=== PATIENT | male | born 1945 | race Caucasian/White ===

== ENCOUNTER 2018-04-29 11:08 | Emergency (ER) | payer BC, OTHER ==
[2018-04-29] MEDS: PERCOCET 5MG/325MG TAB PO (12:34)
[2018-04-29] MEDS: METHOCARBAMOL 500 MG TAB PO (12:34)
[2018-04-29] MEDS: predniSONE 20 MG TAB PO (13:30)
== END 2018-04-29 13:33 | disposition home or self-care (01) ==
LOC: M ED 11:08
DX: M54.17 Radiculopathy, lumbosacral region (principal); M54.42 Lumbago with sciatica, left side; I10 Essential (primary) hypertension; M10.9 Gout, unspecified; Z87.891 Personal history of nicotine dependence; M43.06 Spondylolysis, lumbar region; M43.16 Spondylolisthesis, lumbar region; M48.061 Spinal stenosis, lumbar region without neurogenic claudication; M25.78 Osteophyte, vertebrae; Z79.82 Long term (current) use of aspirin; Z79.899 Other long term (current) drug therapy; Z88.0 Allergy status to penicillin
CPT/HCPCS: 72131

== ENCOUNTER → 2018-09-29 | Outpatient (REF) | payer MEDICARE, OTHER ==
[~2018-09-29] MED LIST: ASPI81TA85 PO; LOSA50TA88; NORCOTAB PO; OMEP40CA2; PRED10TA2 PO; PRED20TA PO; ROBA500T PO; SIMV10TA2 PO; TYLE500T78 PO; ULTR50TA8 PO; ZYLO300T6
== END ==
LOC: M SFHCPLAZ 16:57
PROVIDERS: ATTEND Dermatology
DX: L81.4 Other melanin hyperpigmentation (principal); L82.1 Other seborrheic keratosis
CPT/HCPCS: 11100; 11101; 17000; 17003; 88305; G0463

== ENCOUNTER 2018-10-13 13:38 | Emergency (ER) | payer BC, MEDICARE ==
[~2018-10-13] VITALS: Ht 180.3 cm; Wt 119.5 kg
[~2018-10-13 13:38] MED LIST changes: +LOSA50TA73; -LOSA50TA88; -PRED20TA PO; -SIMV10TA2 PO; -ULTR50TA8 PO
[2018-10-13] MEDS ORDERED: SIMV10TA2 PO (13:48)
[2018-10-13] MEDS ORDERED: ROBA500T PO (15:20)
[2018-10-13] MEDS ORDERED: ULTR50TA8 PO (15:20)
[2018-10-13] MEDS ORDERED: PRED20TA PO (15:20)
[2018-10-13] MEDS: predniSONE 20 MG TAB PO ONE (15:22)
[2018-10-13] MEDS: ACETAMINOPHEN 325 MG TAB PO ONE (15:23)
[2018-10-13] MEDS: traMADol 50 MG TAB PO ONE (15:23)
[2018-10-13 15:33] VITALS: BP 139/95
== END 2018-10-13 15:36 | disposition home or self-care (01) ==
LOC: M ED 13:38
DX: M51.37 Other intervertebral disc degeneration, lumbosacral region (principal); M54.16 Radiculopathy, lumbar region; M54.32 Sciatica, left side; Z79.899 Other long term (current) drug therapy; Z79.82 Long term (current) use of aspirin; Z88.0 Allergy status to penicillin

== ENCOUNTER → 2018-12-12 | Outpatient (REF) | payer MEDICARE, OTHER ==
[~2018-12-12] MED LIST changes: -LOSA50TA73; +LOSA50TA88; +PRED20TA PO; +SIMV10TA2 PO; +ULTR50TA8 PO
== END ==
LOC: M SFHCCLAY 16:23
PROVIDERS: ATTEND Family Medicine
DX: R19.7 Diarrhea, unspecified (principal)

== ENCOUNTER → 2019-02-24 | Outpatient (REF) | payer MEDICARE, OTHER ==
[~2019-02-24] MED LIST changes: +HYDR-3715 PO; -NORCOTAB PO
[2019-02-24 18:10] LABS: BASO % 0.5 % (0.0-1.0); EOS # 0.2 10^3/uL (0.0-0.50); EOS % 3.9 % (0.0-3.0); HEMATOCRIT 44.2 % (42.0-52.0); HEMOGLOBIN 14.3 g/dl (13.5-17.5); LYMPH # 2.3 10^3/uL (1.5-4.5); LYMPH % 37.6 % (24.0-44.0); MEAN CORPUSCULAR HEMOGLOBIN 29.9 pg (27.0-33.0); MEAN CORPUSCULAR HGB CONC 32.4 g/dl (32.0-36.5); MEAN CORPUSCULAR VOLUME 92.5 fl (80.0-96.0); MONO # 0.9 10^3/uL (0.0-0.8); MONO % 14.8 % (0.0-5.0); NEUTROPHILS # 2.7 10^3/uL (1.8-7.7); PLATELET COUNT, AUTOMATED 236 10^3/uL (150-450); RED BLOOD COUNT 4.78 10^6/uL (4.30-6.10); WHITE BLOOD COUNT 6.2 10^3/uL (4.0-10.0)
[2019-02-24 18:55] LABS: BILIRUBIN,TOTAL 0.5 MG/DL (0.2-1.0); CALCIUM LEVEL 9.1 MG/DL (8.8-10.2); CREATININE FOR GFR 1.32 MG/DL (0.70-1.30); GLOMERULAR FILTRATION RATE 56.8 (>42); POTASSIUM SERUM 4.5 MEQ/L (3.5-5.1); TOTAL PROTEIN 7.7 GM/DL (6.4-8.2)
== END ==
LOC: M SFHCCLAY 10:30
PROVIDERS: ATTEND Family Medicine
DX: R53.83 Other fatigue (principal)

== ENCOUNTER → 2019-03-31 | Outpatient (REF) | payer MEDICARE, OTHER | LOC: M SFHCPLAZ 18:57 | PROVIDERS: ATTEND Dermatology | DX: D23.4 Other benign neoplasm of skin of scalp and neck (principal) ==

== ENCOUNTER 2019-08-15 16:42 | Inpatient (IN) | payer MEDICARE, BC, OTHER ==
[~2019-08-15] VITALS: Ht 185.4 cm; Wt 118.7 kg
[~2019-08-15 16:42] MED LIST changes: -OMEP40CA2; +OMEP40CA97; -SIMV10TA2 PO; +SIMV10TA21 PO
[2019-08-15] MEDS ORDERED: META0.52 PO (17:02)
[2019-08-15] MEDS ORDERED: MULTCAP PO (17:02)
[2019-08-15] MEDS ORDERED: NS 1,000 ML IV ONE ×2 (17:15→19:00)
[2019-08-15] MEDS ORDERED: ONDANSETRON 4MG/2ML VIAL (J2405) IV ONE ×2 (17:15→19:15)
[2019-08-15] MEDS ORDERED: ACETAMINOPHEN TAB 650MG DOSE (2X325MG) PO ONE (17:15)
[2019-08-15 17:42] LABS: HEMATOCRIT 48.3 % (42.0-52.0); HEMOGLOBIN 16.1 g/dl (13.5-17.5); MEAN CORPUSCULAR HEMOGLOBIN 30.6 pg (27.0-33.0); MEAN CORPUSCULAR HGB CONC 33.3 g/dl (32.0-36.5); MEAN CORPUSCULAR VOLUME 91.8 fl (80.0-96.0); PLATELET COUNT, AUTOMATED 217 10^3/uL (150-450); RED BLOOD COUNT 5.26 10^6/uL (4.30-6.10); WHITE BLOOD COUNT 7.9 10^3/uL (4.0-10.0)
[2019-08-15 18:04] LABS: CALCIUM LEVEL 9.2 MG/DL (8.8-10.2); CREATININE FOR GFR 1.49 MG/DL (0.70-1.30); GLOMERULAR FILTRATION RATE 49.4 (>42); POTASSIUM SERUM 4.1 MEQ/L (3.5-5.1)
[2019-08-15] MEDS ORDERED: GASTROGRAFIN SOLUTION 30ML (Q9963) As Ordered ONE (18:36)
[2019-08-15] MEDS: GASTROGRAFIN SOLUTION 30ML PO SCH ×2 (18:44→19:09)
[2019-08-15 18:45] LABS: ATYPICAL LYMPH 1 % (0-5); EOSINOPHILS 2 % (0-3); LYMPHOCYTES 12 % (16-44); METAMYELOCYTES 1 % (0-0); MONOCYTES 4 % (0-5); NEUTROPHILS 65 % (28-66); PLATELET ESTIMATE NORMAL (NORMAL)
[2019-08-15 19:27] LABS: ALBUMIN 3.8 GM/DL (3.2-5.2); BILIRUBIN,DIRECT 0.2 MG/DL (0.0-0.2); BILIRUBIN,TOTAL 0.6 MG/DL (0.2-1.0); TOTAL PROTEIN 7.5 GM/DL (6.4-8.2)
[2019-08-15] MEDS ORDERED: IBUPROFEN 600 MG TAB PO ONE (19:30)
[2019-08-15] MEDS ORDERED: ISOVUE-370 76% 100ML VIAL (Q9967) As Ordered ONE (19:32)
[2019-08-15] MEDS: ASPIRIN 81 MG ENTERIC TAB PO SCH (21:00)
[2019-08-15] MEDS: LOSARTAN 25 MG TAB PO SCH (21:00)
--- NOTE | 2019-08-15 21:30 | REPVR ---
PROCEDURE INFORMATION: Exam: CT Abdomen and pelvis with contrast Exam date and time: 08/15/2019 8:07 PM Clinical history: 73 years old, male; Abdominal pain; Additional info: Diverticulitis TECHNIQUE: Imaging protocol: Computed tomography of the abdomen and pelvis with intravenous contrast. Radiation optimization: All CT scans at this facility use at least one of these dose optimization techniques: automated exposure control; mA and/or kV adjustment per patient size (includes targeted exams where dose is matched to clinical indication); or iterative reconstruction. Contrast material: ISO 370; Contrast volume: 100 ml; Contrast route: IV; COMPARISON: CT CHEST/ABD/PELVIS W/ CONTRAST - OUTSIDE PRIOR 11/02/2016 9:45 PM FINDINGS: Liver: Findings suspicious for mild diffuse fatty infiltration of the liver. Indistinctness of the hepatic capsule and stranding in the adjacent fat at the posterior aspect of the inferior edge of the liver on axial images 50 through 57 is unchanged compared to the prior CT scan of the chest performed on 03/03/2019. No focal hepatic lesion. Gallbladder and bile ducts: Status post cholecystectomy. No bile duct dilatation. Pancreas: Unremarkable. No ductal dilation. Spleen: Unremarkable. No splenomegaly. Adrenals: Normal. No mass. Kidneys and ureters: Nonobstructing stone measuring 3 mm within the right kidney upper pole. Unremarkable left kidney. No hydronephrosis. Stomach and bowel: Tiny gastric hiatus hernia. Unremarkable small bowel. Nonspecific fluid levels present throughout the colon, which may be seen with diarrhea illnesses. No mucosal thickening. Mild colonic diverticulosis without diverticulitis. Appendix: No evidence of appendicitis. Intraperitoneal space: Unremarkable. No free air. No significant fluid collection. Vasculature: Coronary atherosclerosis. Moderate atherosclerosis of the abdominal aorta and branch vessels. No aneurysm. Lymph nodes: Susanne mesentery with multiple slightly enlarged mesenteric lymph nodes are new compared to the prior CT and are nonspecific. These findings consistent with with sclerosing mesenteritis which may be associated with malignancy, recent abdominal surgery, systemic inflammatory conditions, an autoimmune disorders. Bladder: Unremarkable as visualized. Reproductive: Unremarkable as visualized. Bones/joints: Degenerative spondylosis of the lumbar spine. Bilateral L5 chronic pars defects. No suspicious bone lesion. Soft tissues: Tiny right inguinal hernia containing fat. Tiny right inguinal hernia containing fat. IMPRESSION: 1. Susanne mesentery with multiple slightly enlarged mesenteric lymph nodes are new compared to the prior CT and are nonspecific. These findings consistent with with sclerosing mesenteritis which may be associated with malignancy, recent abdominal surgery, systemic inflammatory conditions, and autoimmune disorders. 2. Mild colonic diverticulosis without diverticulitis. 3. Nonspecific fluid levels throughout the colon, which may be seen with diarrhea. Illnesses. Electronically signed by: Gabriel Mitchell On 08/15/2019 21:30:21 PM
[2019-08-15 22:26] LABS: ABG HCO3 19.5 MEQ/L (22.0-26.0); ABG O2 SATURATION 96.3 % (95.0-99.0); ABG PARTIAL PRESSURE O2 84.5 mmHg (75.0-100.0); ABG STANDARD HCO3 20.4 MEQ/L (22.0-26.0); ABG TOTAL CO2 20.6 MEQ/L (23.0-31.0); ABG pH (ARTERIAL) 7.364 UNITS (7.350-7.450)
--- NOTE | 2019-08-15 22:42 | REPVR ---
PROCEDURE INFORMATION: Exam: CT Chest Without Contrast Exam date and time: 08/15/2019 9:57 PM Clinical history: 73 years old, male; Fever TECHNIQUE: Imaging protocol: Computed tomography of the chest without contrast. 3D rendering: MIP reconstructed images were created and reviewed. Radiation optimization: All CT scans at this facility use at least one of these dose optimization techniques: automated exposure control; mA and/or kV adjustment per patient size (includes targeted exams where dose is matched to clinical indication); or iterative reconstruction. COMPARISON: CT Chest without contrast 03/03/2019 9:56 AM FINDINGS: Lungs: Posterior right lower lobe nodule measuring 5 mm. Pleural space: Unremarkable. No pneumothorax. No pleural effusion. Heart: Coronary artery calcifications are present. Mediastinum: Minimal hiatal hernia. Pulmonary arteries: The main pulmonary artery measures 33 mm. Aorta: The ascending thoracic aorta measures 41 mm. Lymph nodes: There are a few small distal paraesophageal nodes. Gallbladder and bile ducts: Status post cholecystectomy. Bones/joints: Unremarkable. No acute fracture. Soft tissues: Unremarkable. IMPRESSION: 1. 5 mm posterior right lower lobe nodule which is unchanged from 03/03/2019 and appears to be unchanged from 11/02/2016 with stability over nearly 3 years. 2. Status post cholecystectomy. 3. Slight aneurysmal dilatation of the ascending thoracic aorta measuring 41 mm which is similar to 11/02/2016. 4. Minimal hiatal hernia. 5. There are no interval pulmonary infiltrates. Electronically signed by: Nilton Coker On 08/15/2019 22:42:02 PM
--- NOTE | 2019-08-15 23:56 | HPEPDOC ---
[facility] Medical History & Physical Date of Admission Aug 15, 2019 Date of Service: Aug 15, 2019 Primary Care Physician: Enzo Rodriguez M.D. Attending Physician: KASHIF BONILLA MD History and Physical TIME OF SERVICE: 11:35 PM CHIEF COMPLAINT: Vomiting HISTORY OF PRESENT ILLNESS: This is a 73-year-old male who presented with complaints of more than 20 episodes of dark brown colored. He has also had 10-15 episodes of watery diarrhea, along with fevers and chills. His symptoms began on Wednesday. He denies having abdominal pain, and denies having muscle aches. His ate most of the same foods that he eats but has not been sick. REVIEW OF SYSTEMS: 12 point review of systems negative except as listed in HPI PAST MEDICAL/ SURGICAL HISTORY: Chronic hypertension Gout. Dyslipidemia Actinic keratosis. Status post cholecystectomy GERD Sleep apnea. Status post hernia repair. Status post torn biceps repair. Status post right meniscus repair SOCIAL HISTORY: Nonsmoker. Quit FAMILY HISTORY: Unknown because patient is adopted ALLERGIES: Please see below. HOME MEDICATIONS: Please see below. PHYSICAL EXAMINATION: VITAL SIGNS: Please see below. GENERAL APPEARANCE: Well-nourished, well-developed, not in apparent distress HEENT: Normocephalic, atraumatic. Mucous membranes moist and pink CARDIOVASCULAR: Tachycardic Regular rhythm. No murmurs, rubs or gallops. Radial pulses are intact. There is no lower extremity edema. Extremities are warm and well-perfused LUNGS: Clear to auscultation bilaterally on room air ABDOMEN: Positive bowel sounds. Abdomen is obese, soft, and nontender on palpation MUSCULOSKELETAL: Range of motion is intact in all 4 extremities INTEGUMENT: He slightly diaphoretic but not flushed NEUROLOGICAL:. Cranial nerves 2-12 are grossly intact. Speech is not dysarthric PSYCHIATRIC: Alert and oriented person, place and time, able to understand and follow commands LABORATORY DATA: See below. IMAGING: CT abdomen pelvis "IMPRESSION: 1. Susanne mesentery with multiple slightly enlarged mesenteric lymph nodes are new compared to the prior CT and are nonspecific. These findings consistent with with sclerosing mesenteritis which may be associated with malignancy, recent abdominal surgery, systemic inflammatory conditions, and autoimmune disorders. 2. Mild colonic diverticulosis without diverticulitis. 3. Nonspecific fluid levels throughout the colon, which may be seen with diarrhea. Illnesses. CT chest "IMPRESSION: 1. 5 mm posterior right lower lobe nodule which is unchanged from 03/03/2019 and appears to be unchanged from 11/02/2016 with stability over nearly 3 years. 2. Status post cholecystectomy. 3. Slight aneurysmal dilatation of the ascending thoracic aorta measuring 41 mm which is similar to 11/02/2016. 4. Minimal hiatal hernia. 5. There are no interval pulmonary infiltrates. MICROBIOLOGY: Please see below. ASSESSMENT: Mr. Lee is a 73-year-old male with a past medical history of chronic hypertension, gout, dyslipidemia, GERD, and sleep apnea who will be admitted for management of sepsis, likely secondary to gastroenteritis. PLAN: 1. Sepsis, likely secondary to gastritis The patient has had nausea, vomiting, diarrhea and fevers which are likely due to viral infection SIRS criteria include a temperature of 102.4, and heart rate of 119 Lactic acid is elevated He has nondiabetic hyperglycemia -NEW2S Score = 4 points = low risk = recommend monitoring Q4-6H CT scan showed nonspecific enlarged mesenteric lymph nodes Received 2 L of IV fluids in the ED The patient reports that his emesis was brown but his hemoglobin and BUN are within normal limits Plan: admit to PCU / telemetry / complete Sepsis protocol w repeat lactic acid & emperic ciprofloxacin x1 / c/w IVF /f/u blood cx, / Acetaminophen PRN for fever / Zofran when necessary for vomiting/resume omeprazole / f/u stool +/- gastric occult test results 2. Stable thoracic aneurysm Per CT is 41 mm in size which is the same size that it was in October 2016 Plan: Follow-up with PCP for surveillance imaging 3. Chronic hypertension Blood pressure slightly low today. Plan: Resume home meds tomorrow 4.Gout. Plan: Resume home meds 5.Dyslipidemia Plan: Resume home meds 6. GERD Plan: Resume home meds 7. Sleep apnea. Plan: Use home CPAP machine 8. 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 Consider using mechanical prophylaxis. = SCDs Disposition pending clinical course Vital Signs Vital Signs Date Time Temp Pulse Resp B/P (MAP) Pulse Ox O2 Delivery O2 Flow Rate FiO2 08/15/19 23:12 99.6 101 19 112/54 (73) 91 Room Air Laboratory Data Labs 24H Laboratory Tests 2 08/15/19 17:29: Nucleated Red Blood Cells % (auto) 0.0, Neutrophils 65, Band Neutrophils 15H, Lymphocytes (Manual) 12L, Monocytes (Manual) 4, Eosinophils (Manual) 2, Metamyelocytes 1H, Atypical Lymphocytes 1, Platelet Estimate NORMAL, Anion Gap 9, Glomerular Filtration Rate 49.4, Calcium Level 9.2, Aspartate Amino Transf (AST/SGOT) 20, Alanine Aminotransferase (ALT/SGPT) 34, Alkaline Phosphatase 101, Total Bilirubin 0.6, Direct Bilirubin 0.2, Total Protein 7.5, Albumin 3.8, Albumin/Globulin Ratio 1.03, Lipase 153 08/15/19 17:37: Lactic Acid Level 2.3*H 08/15/19 22:00: Urine Color YELLOW, Urine Appearance CLEAR, Urine pH 5.0, Urine Specific [place] >1.060H, Urine Protein 2+H, Urine Glucose (UA) NEGATIVE, Urine Ketones NEGATIVE, Urine Blood NEGATIVE, Urine Nitrite NEGATIVE, Urine Bilirubin NEGATIVE, Urine Urobilinogen 0.2, Urine Leukocyte Esterase NEGATIVE, Urine WBC (Auto) 1, Urine RBC (Auto) 1, Urine Hyaline Casts (Auto) 0, Urine Bacteria (Auto) NEGATIVE, Urine Squamous Epithelial Cells 0, Urine Mucus (Auto) SMALL, Urine Sperm (Auto) , Blood Gas Bicarbonate Standard 20.4L, Arterial Blood pH 7.364, Arterial Blood Partial Pressure CO2 35.0, Arterial Blood Partial Pressure O2 84.5, Arterial Blood Total CO2 20.6L, Arterial Blood HCO3 19.5L, Arterial Blood Base Excess -5.0L, Arterial Blood Oxygen Saturation 96.3, Lactic Acid Followup at 4 Hours 3.3*H CBC/BMP Laboratory Tests 08/15/19 17:29 Red Blood Count 5.26, Mean Corpuscular Volume 91.8, Mean Corpuscular Hemoglobin 30.6, Mean Corpuscular Hemoglobin Concent 33.3, Red Cell Distribution Width 13.5 , Calcium Level 9.2 Microbiology Microbiology 08/15/19 Gastrointestinal Tract Panel (PCR) - Final, Complete 08/15/19 Blood Culture, Received Pending 08/15/19 Blood Culture, Received Pending Home Medications Scheduled Allopurinol (Zyloprim) 300 Mg Tablet, 150 MG PO QHS Aspirin (Aspirin EC) 81 Mg Tablet.dr, 81 MG PO QHS L.acidoph/L.bulg/B.bif/S.therm (Bacid Caplet) 1 Each Tablet, 1 TAB PO DAILY Losartan Potassium (Losartan Potassium) 25 Mg Tablet, 25 MG PO QHS Multivitamins (Thera M Plus Tablet) 1 Each Tablet, 1 TAB PO DAILY Omeprazole (Omeprazole) 10 Mg Capsule.dr, 10 MG PO QHS Psyllium Husk (Metamucil) 0.52 Gm Capsule, 0.52 GM PO DAILY Simvastatin (Simvastatin) 10 Mg Tablet, 10 MG PO QHS Scheduled PRN Acetaminophen/Diphenhydramine (Acetaminophen Pm Caplet) 1 Each Tablet, 1 TAB PO QHS PRN for SLEEP Allergies Coded Allergies: Penicillins (Verified Allergy, Intermediate, rash, 08/15/19) A-FIB/CHADSVASC A-FIB History Current/History of A-Fib/PAF?: No Current PO Anticoag Therapy: No KASHIF BONILLA MD Aug 15, 2019 23:56
[2019-08-16] MEDS ORDERED: ZYLO300T6 PO (00:14)
[2019-08-16] MEDS ORDERED: VITMTA PO (00:14)
[2019-08-16] MEDS ORDERED: ACET25TA12 PO (00:14)
[2019-08-16] MEDS ORDERED: LOSA25TA14 PO (00:14)
[2019-08-16] MEDS ORDERED: SIMV10TA21 PO (00:14)
[2019-08-16] MEDS ORDERED: ASPI-161 PO (00:14)
[2019-08-16] MEDS ORDERED: OMEP10CA PO (00:14)
[2019-08-16] MEDS ORDERED: BACITAB PO (00:14)
[2019-08-16] MEDS ORDERED: META0.522 PO (00:14)
[2019-08-16] MEDS: allopurinoL 300 MG TAB PO SCH ×2 (00:29→21:07)
[2019-08-16] MEDS: OMEPRAZOLE 20 MG CAP PO SCH ×3 (00:29→21:06)
[2019-08-16] MEDS ORDERED: ONDANSETRON 4MG/2ML VIAL (J2405) IV PRN (00:30)
[2019-08-16] MEDS ORDERED: PILL CUTTER 1 EACH XX PRN (00:30)
[2019-08-16] MEDS ORDERED: CIPROFLOXACIN 400 MG in IV 1 EA IV ONE (00:30)
[2019-08-16] MEDS ORDERED: NS 1,000 ML IV SCH (00:30)
[2019-08-16] MEDS ORDERED: ACETAMINOPHEN 650MG ER TAB (TYLENOL ARTHRITIS) PO PRN (00:30)
[2019-08-16] MEDS: SIMVASTATIN 10 MG TAB PO SCH ×2 (00:30→21:07)
[2019-08-16] MEDS: NS 1,000 ML IV SCH ×2 (00:32→15:57)
[2019-08-16 04:30] VITALS: BP 134/64
[2019-08-16] MEDS ORDERED: FLUBLOK(EGG FREE)(QUAD)INFLUENZA VACC 0.5ML SYRINGE (90682)18YRS&OLDER IM SCH (04:45)
[2019-08-16 07:24] LABS: HEMATOCRIT 42.6 % (42.0-52.0); HEMOGLOBIN 14.3 g/dl (13.5-17.5); MEAN CORPUSCULAR HEMOGLOBIN 30.8 pg (27.0-33.0); MEAN CORPUSCULAR HGB CONC 33.6 g/dl (32.0-36.5); MEAN CORPUSCULAR VOLUME 91.8 fl (80.0-96.0); PLATELET COUNT, AUTOMATED 215 10^3/uL (150-450); RED BLOOD COUNT 4.64 10^6/uL (4.30-6.10); WHITE BLOOD COUNT 4.6 10^3/uL (4.0-10.0)
[2019-08-16 07:50] LABS: CALCIUM LEVEL 8.1 MG/DL (8.8-10.2); CREATININE FOR GFR 1.48 MG/DL (0.70-1.30); GLOMERULAR FILTRATION RATE 49.7 (>42); MAGNESIUM LEVEL 1.9 MG/DL (1.8-2.4); POTASSIUM SERUM 3.9 MEQ/L (3.5-5.1)
[2019-08-16] MEDS: LACTOBACILLUS ACIDOPHILUS CAP (BACID) PO SCH (07:54)
[2019-08-16 08:00] VITALS: BP 124/72
[2019-08-16] MEDS ORDERED: ENOXAPARIN 40 MG/0.4 ML SYRINGE (J1650) SC SCH (09:00)
[2019-08-16 10:08] LABS: HEMOGLOBIN A1c 5.8 %
[2019-08-16 12:00] VITALS: BP 104/56
[2019-08-16 16:00] VITALS: BP 119/83
[2019-08-16 20:00] VITALS: BP 141/78
--- NOTE | 2019-08-16 20:22 | IPNPDOC ---
Date Seen The patient was seen on 08/16/19. Progress Note SUBJECTIVE: Tomas was seen and examined this morning while lying in bed. He was advanced this morning to a full liquid diet after consuming only water and Jell-O since admission. He denies having any pain. He remains on telemetry. He continues to have loose stools. He denies any feeling nauseated or vomiting. Patient reports he is able to sleep a bit but did not have his home CPAP to use. He ambulates to the bathroom under his own power. He denies feeling feverish, chills, night sweats, chest pain, chest pressure, palpitations, shortness breath, cough, abdominal pain, or lower extremity edema. He endorses left lower extremity, left foot, and right foot numbness. OBJECTIVE PHYSICAL EXAMINATION: VITAL SIGNS: Please see below. GENERAL: Tomas is lying in bed at time of exam. He is pleasant, cooperative, conversant, alert and oriented 3. He responds to questions and commands appropriately. He does not appear to be in any acute distress at this time. HEENT: Pupils appear to be mildly constricted at baseline, with the left slightly more so than the right. Pupils are round and reactive to light and accommodation. Extraocular motion is intact. Anicteric sclera. Noninjected conjunctiva. There is a flesh-colored papule on the roof of patient's mouth that is approximately 1 cm in length. There is no pharyngeal erythema. Patient appears to have mallampati score of 3 or 4. Neck is short, wide and obese. A left cervical lymph node was palpable. CARDIOVASCULAR: Heart sounds are distant yet, normal S1, S2 appreciated auscultation. Good capillary refill bilateral hands. 2+ radial and dorsalis pedis pulses bilaterally. No lower extremity edema. RESPIRATORY: Decreased tidal volume. Lungs are clear to auscultation bilaterally. There is symmetric chest expansion. There are no visible retractions or accessory muscle use with respiration. ABDOMINAL: Abdomen is obese and soft. There are a couple of small incisional scars. There is a right lower quadrant flesh-colored papule about 3/4cm in length. Hyperactive bowel sounds are present. There is no tenderness to palpation. There is no tympany on percussion. There are no palpable masses. EXTREMITIES: Arthritic changes on bilateral fingers visible. NEUROLOGICAL: Patient is awake, alert and oriented 3 area. Sensation light touch is intact upper extremities bilaterally. Moderately diminished sensation light touch of left lower extremity. MUSCULOSKELETAL: 5 out of 5 muscle strength testing of upper extremity and lower extremity bilaterally PSYCHOLOGICAL: Appropriate mood, appropriate affect LABORATORY DATA, IMAGING STUDIES, MICROBIOLOGY: Please see below. ASSESSMENT AND PLAN: This is a 73-year-old male who presented to the emergency department on 08/15. After 15-20 episodes of brown-colored emesis and 10-15 episodes of watery diarrhea. He had associated symptoms of fever and chills. When presenting to the ED, he had an elevated heart rate and was febrile. His lactic acid was also moderately elevated. Patient was thought to have sepsis, likely secondary to gastroenteritis. Imaging showed new, nonspecific mildly enlarged lymph nodes that could be caused by multiple etiologies. Patient was given 2 L of IV fluids in the emergency department and IV fluids were continued upon admission to PCU. Blood cultures were taken, stool. GI panel was ordered, patient was given Zofran and resumed omeprazole. Patient received flu vaccine as well as po lactobacillus. Patient received one-time doses as empiric ciprofloxacin. Repeat lactic acid, CBC, CMP, ABG, and UA were all ordered. On morning of 08/16, patient was no longer vomiting or feeling nauseated. He continued to have watery diarrhea. He was switched to a full liquid diet in the morning of 08/16. During the day on 08/16, the episodes of diarrhea decreased to around 5 and patient was started on a brat diet in the late afternoon. #Sepsis likely secondary to gastroenteritis -patient is no longer febrile or tachycardic. Patient's repeat lactic acid levels have gone down. There is no leukocytosis. Arterial blood gas showed mild non-anion gap metabolic acidosis consistent with diarrhea. Sepsis appears to have resolved. -No antibiotics were given after initial one-time dose of ciprofloxacin -patient receiving IV fluids in the form of normal saline 1 L -GI PCR panel from stool was negative -2 blood cultures are still pending #Acute gastroenteritis -Patient's episodes of diarrhea decreased to 5 today and he was started on a brat diet in the afternoon -Patient is not feeling nauseated and has had not vomited since prior to admission. -GI PCR panel from stool was negative -Continue with omeprazole and Zofran -On discharge, patient might benefit from trying cholestyramine to help with diarrhea since he is status post cholecystectomy #Chronic hypertension -Patient has been normotensive throughout the day -Continue with home losartan #Stable thoracic aneurysm -Unchanged from imaging in October 2016, dilation is about 41 mm #Dyslipidemia -Continue with home simvastatin -Patient's A1c was measured at 5.8 -On discharge, patient might benefit from trying cholestyramine to help with diarrhea since he is status post cholecystectomy, and help lower cholesterol level #Chronic gout -Continue with home allopurinol #Obstructive sleep apnea -Patient has home CPAP machine, which is not with him on admission #Obesity -BMI 34.8 -Hemoglobin A1c was measured at 5.8 today Disposition: Patient's episodes of diarrhea decreased and he has not vomited since admission. He is afebrile with lactic acid and CBC within normal limits. Patient was started on brat diet late this afternoon. Hospitalist team will continue to monitor patient's status, evaluate for tolerance of new diet, and morning labs. I saw and evaluated the patient. I agree with the findings and plan of care as documented in the above note VS, I&O, 24H, Fishbone Vital Signs/I&O Vital Signs Date Time Temp Pulse Resp B/P (MAP) Pulse Ox O2 Delivery O2 Flow Rate FiO2 08/16/19 16:00 99.3 81 20 119/83 (95) 95 08/16/19 02:52 Room Air I&O- Last 24 Hours up to 6 AM 08/16/19 06:00 Intake Total 2640 ml Output Total 0 ml Balance 2640 ml Laboratory Data 24H LABS Laboratory Tests 2 08/15/19 22:00: Urine Color YELLOW, Urine Appearance CLEAR, Urine pH 5.0, Urine Specific [place] >1.060H, Urine Protein 2+H, Urine Glucose (UA) NEGATIVE, Urine Ketones NEGATIVE, Urine Blood NEGATIVE, Urine Nitrite NEGATIVE, Urine Bilirubin NEGATIVE, Urine Urobilinogen 0.2, Urine Leukocyte Esterase NEGATIVE, Urine WBC (Auto) 1, Urine RBC (Auto) 1, Urine Hyaline Casts (Auto) 0, Urine Bacteria (Auto) NEGATIVE, Urine Squamous Epithelial Cells 0, Urine Mucus (Auto) SMALL, Urine Sperm (Auto) , Urine Random Creatinine 180.0, Urine Random Sodium 30, Urine Random Urea Nitrogen 883, Blood Gas Bicarbonate Standard 20.4L, Arterial Blood pH 7.364, Arterial Blood Partial Pressure CO2 35.0, Arterial Blood Partial Pressure O2 84.5, Arterial Blood Total CO2 20.6L, Arterial Blood HCO3 19.5L, Arterial Blood Base Excess -5.0L, Arterial Blood Oxygen Saturation 96.3, Lactic Acid Followup at 4 Hours 3.3*H 08/16/19 07:08: Nucleated Red Blood Cells % (auto) 0.0, Anion Gap 6L, Glomerular Filtration Rate 49.7, Lactic Acid Level 1.1, Blood Urea Nitrogen 24H, Creatinine 1.48H, Sodium Level 140, Potassium Level 3.9, Chloride Level 108H, Carbon Dioxide Level 26, Calcium Level 8.1L, Magnesium Level 1.9 08/16/19 08:48: Estimated Mean Plasma Glucose 120H, Hemoglobin A1c 5.8 CBC/BMP Laboratory Tests 08/16/19 07:08 Red Blood Count 4.64, Mean Corpuscular Volume 91.8, Mean Corpuscular Hemoglobin 30.8, Mean Corpuscular Hemoglobin Concent 33.6, Red Cell Distribution Width 13.8, Calcium Level 8.1 L Microbiology Microbiology 08/15/19 Gastrointestinal Tract Panel (PCR) - Final, Complete 08/15/19 Blood Culture - Preliminary, Resulted No growth after 24 hours . All specim... 08/15/19 Blood Culture - Preliminary, Resulted No growth after 24 hours . All specim... MARC HADDAD PGY-1 Aug 16, 2019 20:21 JEFFY JEFFREY MD Aug 17, 2019 11:00
[2019-08-16 21:06] VITALS: BP 141/78
[2019-08-16] MEDS: LOSARTAN 25 MG TAB PO SCH (21:06)
[2019-08-16] MEDS: ASPIRIN 81 MG ENTERIC TAB PO SCH (21:06)
[2019-08-17] VITALS: BP 133/75
[2019-08-17 04:00] VITALS: BP 111/55
[2019-08-17 04:18] LABS: HEMATOCRIT 37.6 % (42.0-52.0); HEMOGLOBIN 12.4 g/dl (13.5-17.5); MEAN CORPUSCULAR HEMOGLOBIN 30.6 pg (27.0-33.0); MEAN CORPUSCULAR VOLUME 92.8 fl (80.0-96.0); PLATELET COUNT, AUTOMATED 196 10^3/uL (150-450); RED BLOOD COUNT 4.05 10^6/uL (4.30-6.10); WHITE BLOOD COUNT 6.4 10^3/uL (4.0-10.0)
[2019-08-17 04:34] LABS: BLOOD UREA NITROGEN 14 MG/DL (7-18); CALCIUM LEVEL 8.2 MG/DL (8.8-10.2); CARBON DIOXIDE LEVEL 28 MEQ/L (21-32); CHLORIDE LEVEL 110 MEQ/L (98-107); GLOMERULAR FILTRATION RATE > 60.0 (>42); GLUCOSE, FASTING 85 MG/DL (70-100); POTASSIUM SERUM 3.8 MEQ/L (3.5-5.1); SODIUM LEVEL 141 MEQ/L (136-145)
[2019-08-17 08:00] VITALS: BP 125/77
[2019-08-17] MEDS ORDERED: CHOL4PW PO (10:10)
[2019-08-17] MEDS: LACTOBACILLUS ACIDOPHILUS CAP (BACID) PO SCH (10:29)
--- NOTE | 2019-08-18 15:35 | DS.PDOC ---
Discharge Summary General Date of Admission Aug 15, 2019 at 23:52 Date of Discharge 08/17/19 Attending Physician: JEFFY JEFFREY MD Discharge Summary PROCEDURES PERFORMED DURING STAY: None. ADMITTING DIAGNOSES: 1. Sepsis secondary to acute gastroenteritis DISCHARGE DIAGNOSES: 1. Sepsis secondary to acute gastroenteritis COMPLICATIONS/CHIEF COMPLAINT: Gastroenteritis; Sepsis. HISTORY OF PRESENT ILLNESS: Patient is a 73-year-old male who presented to [facility] emergency department with complaint of nausea, vomiting, diarrhea. Patient stated that he developed nausea, vomiting and diarrhea on Wednesday. He stated this persisted. Patient admitted to 20 or more episodes of diarrhea. Patient stated that the diarrhea was watery. He denied any blood in his stool. Patient stated that he did have chills and felt feverish. Patient stated that he did have some abdominal pain to time. Patient's symptoms persisted and he presented to the emergency department. Patient and his have stated the patient has a history of chronic diarrhea, however, was recently started on Metamucil and this had resolved. He has stated that this most recent episode was more there before. He also states that his previous episodes of diarrhea were never associated with vomiting. On evaluation in emergency department, the patient was found to be febrile at 102.4, tachycardic with a heart rate of 120 and a lactic acid of 3.3. Patient was admitted to hospital service with a diagnosis of sepsis secondary gastroenteritis. Patient received IV fluids as well as a dose of antibiotics. Patient received a gastrointestinal tract, PCR panel which was negative. He had received CT imaging of the abdomen and pelvis which demonstrated justin mesentery with multiple slightly enlarged mesenteric lymph nodes compared to previous CTs, which is nonspecific. He had mild colonic diverticulosis without diverticulitis and nonspecific fluid levels throughout the colon, which is seen with diarrheal illness. The patient's diet was advanced to clear liquids. Patient subsequently had 3 loose stools overnight. The following day the patient was reevaluated stated that he would like to try to advance his diet. The patient was advanced to a brat diet which he tolerated well. Over the next day the patient had no diarrhea. His stools are now formed. Patient was felt safe to be discharged. He was instructed to continue his brat diet at home and to follow up with his primary care physician. He was also instructed to follow-up with his director of optimization if his diarrhea returns. DISCHARGE MEDICATIONS: Please see below. ALLERGIES: Please see below. PHYSICAL EXAMINATION ON DISCHARGE: VITAL SIGNS: Please see below. GENERAL: Awake, alert and oriented, appears in no acute distress, lying comfortably in bed HEENT: Atraumatic normocephalic. Eyes nonicteric. Trachea is midline NECK: No palpable cervical, axillary or supraclavicular lymphadenopathy CARDIOVASCULAR EXAMINATION:. Normal S1, S2, regular rate and rhythm. No clicks, rubs or murmurs RESPIRATORY EXAMINATION:. Clear vesicular breath sounds bilaterally with good respiratory effort. No wheezes, rhonchi or rales ABDOMINAL EXAMINATION:. Obese, soft, nondistended, nontender to palpation in all 4 quadrants. No rebound tenderness or guarding. Normoactive bowel sounds throughout EXTREMITIES:. No edema. Full and equal pulses in bilateral upper and lower extremities SKIN:. No rashes or lesions NEUROLOGICAL EXAMINATION:. No focal neurological deficits PSYCHIATRIC EXAMINATION:. Mood and affect appear appropriate LABORATORY DATA: Please see below. IMAGING: PROCEDURE INFORMATION: Exam: CT Abdomen and pelvis with contrast Exam date and time: 08/15/2019 8:07 PM Clinical history: 73 years old, male; Abdominal pain; Additional info: Diverticulitis TECHNIQUE: Imaging protocol: Computed tomography of the abdomen and pelvis with intravenous contrast. Radiation optimization: All CT scans at this facility use at least one of these dose optimization techniques: automated exposure control; mA and/or kV adjustment per patient size (includes targeted exams where dose is matched to clinical indication); or iterative reconstruction. Contrast material: ISO 370; Contrast volume: 100 ml; Contrast route: IV; COMPARISON: CT CHEST/ABD/PELVIS W/ CONTRAST - OUTSIDE PRIOR 11/02/2016 9:45 PM FINDINGS: Liver: Findings suspicious for mild diffuse fatty infiltration of the liver. Indistinctness of the hepatic capsule and stranding in the adjacent fat at the posterior aspect of the inferior edge of the liver on axial images 50 through 57 is unchanged compared to the prior CT scan of the chest performed on 03/03/2019. No focal hepatic lesion. Gallbladder and bile ducts: Status post cholecystectomy. No bile duct dilatation. Pancreas: Unremarkable. No ductal dilation. Spleen: Unremarkable. No splenomegaly. Adrenals: Normal. No mass. Kidneys and ureters: Nonobstructing stone measuring 3 mm within the right kidney upper pole. Unremarkable left kidney. No hydronephrosis. Stomach and bowel: Tiny gastric hiatus hernia. Unremarkable small bowel. Nonspecific fluid levels present throughout the colon, which may be seen with diarrhea illnesses. No mucosal thickening. Mild colonic diverticulosis without diverticulitis. Appendix: No evidence of appendicitis. Intraperitoneal space: Unremarkable. No free air. No significant fluid collection. Vasculature: Coronary atherosclerosis. Moderate atherosclerosis of the abdominal aorta and branch vessels. No aneurysm. Lymph nodes: Justin mesentery with multiple slightly enlarged mesenteric lymph nodes are new compared to the prior CT and are nonspecific. These findings consistent with with sclerosing mesenteritis which may be associated with malignancy, recent abdominal surgery, systemic inflammatory conditions, an autoimmune disorders. Bladder: Unremarkable as visualized. Reproductive: Unremarkable as visualized. Bones/joints: Degenerative spondylosis of the lumbar spine. Bilateral L5 chronic pars defects. No suspicious bone lesion. Soft tissues: Tiny right inguinal hernia containing fat. Tiny right inguinal hernia containing fat. IMPRESSION: 1. Justin mesentery with multiple slightly enlarged mesenteric lymph nodes are new compared to the prior CT and are nonspecific. These findings consistent with with sclerosing mesenteritis which may be associated with malignancy, recent abdominal surgery, systemic inflammatory conditions, and autoimmune disorders. 2. Mild colonic diverticulosis without diverticulitis. 3. Nonspecific fluid levels throughout the colon, which may be seen with diarrhea. Illnesses. Electronically signed by: Gabriel Mitchell On 08/15/2019 21:30:21 PM PROCEDURE INFORMATION: Exam: CT Chest Without Contrast Exam date and time: 08/15/2019 9:57 PM Clinical history: 73 years old, male; Fever TECHNIQUE: Imaging protocol: Computed tomography of the chest without contrast. 3D rendering: MIP reconstructed images were created and reviewed. Radiation optimization: All CT scans at this facility use at least one of these dose optimization techniques: automated exposure control; mA and/or kV adjustment per patient size (includes targeted exams where dose is matched to clinical indication); or iterative reconstruction. COMPARISON: CT Chest without contrast 03/03/2019 9:56 AM FINDINGS: Lungs: Posterior right lower lobe nodule measuring 5 mm. Pleural space: Unremarkable. No pneumothorax. No pleural effusion. Heart: Coronary artery calcifications are present. Mediastinum: Minimal hiatal hernia. Pulmonary arteries: The main pulmonary artery measures 33 mm. Aorta: The ascending thoracic aorta measures 41 mm. Lymph nodes: There are a few small distal paraesophageal nodes. Gallbladder and bile ducts: Status post cholecystectomy. Bones/joints: Unremarkable. No acute fracture. Soft tissues: Unremarkable. IMPRESSION: 1. 5 mm posterior right lower lobe nodule which is unchanged from 03/03/2019 and appears to be unchanged from 11/02/2016 with stability over nearly 3 years. 2. Status post cholecystectomy. 3. Slight aneurysmal dilatation of the ascending thoracic aorta measuring 41 mm which is similar to 11/02/2016. 4. Minimal hiatal hernia. 5. There are no interval pulmonary infiltrates. Electronically signed by: Nilton Coker On 08/15/2019 22:42:02 PM PROGNOSIS: Good ACTIVITY: As tolerated. DIET:. BRAT diet DISCHARGE PLAN: Is to be discharged home with follow up with his primary care physician in one to weeks for hospital follow-up. Patient is to follow-up with his director of optimization in regards to his history of chronic diarrhea. During this admission, patient was felt to have an acute gastroenteritis. Patient has a history of cholecystectomy and states that he had developed a chronic diarrhea shortly after his cholecystectomy. Patient was informed that his acute episode is likely unrelated to his history of chronic on and off diarrhea. Although rare, patient may have post cholecystectomy diarrhea and may benefit from cholestyramine. Patient was advised to follow-up with his care physician in regards to starting this medication. Additionally, patient was instructed to follow a BRAT diet and to avoid fatty and greasy foods. Patient was in agreement with plan DISPOSITION: 01 Home, Self-Care. DISCHARGE CONDITION: Stable. I saw and evaluated the patient. I agree with the findings and plan of care as documented in the documenters note. I spent 45 minutes coordinating this patient's discharge. Vital Signs/I&Os Vital Signs Date Time Temp Pulse Resp B/P (MAP) Pulse Ox O2 Delivery O2 Flow Rate FiO2 08/17/19 08:00 97.9 77 19 125/77 (93) 95 08/16/19 02:52 Room Air I&O- Last 24 Hours up to 6 AM 08/18/19 06:00 Intake Total 300 ml Balance 300 ml Microbiology Microbiology 08/15/19 Gastrointestinal Tract Panel (PCR) - Final, Complete 08/15/19 Blood Culture - Preliminary, Resulted No Growth after 48 hours. All Specime... 08/15/19 Blood Culture - Preliminary, Resulted No Growth after 48 hours. All Specime... Discharge Medications Scheduled Allopurinol (Zyloprim) 300 Mg Tablet, 150 MG PO QHS, (Reported) Aspirin (Aspirin EC) 81 Mg Tablet.dr, 81 MG PO QHS, (Reported) Cholestyramine (Cholestyramine Packet) 4 Gm Powd.pack, 4 GM PO BID for chol levels and no gallbladder L.acidoph/L.bulg/B.bif/S.therm (Bacid Caplet) 1 Each Tablet, 1 TAB PO DAILY, (Reported) Losartan Potassium (Losartan Potassium) 25 Mg Tablet, 25 MG PO QHS, (Reported) Multivitamins (Thera M Plus Tablet) 1 Each Tablet, 1 TAB PO DAILY, (Reported) Omeprazole (Omeprazole) 10 Mg Capsule.dr, 10 MG PO QHS, (Reported) Psyllium Husk (Metamucil) 0.52 Gm Capsule, 0.52 GM PO DAILY, (Reported) Simvastatin (Simvastatin) 10 Mg Tablet, 10 MG PO QHS, (Reported) Scheduled PRN Acetaminophen/Diphenhydramine (Acetaminophen Pm Caplet) 1 Each Tablet, 1 TAB PO QHS PRN for SLEEP, (Reported) Allergies Coded Allergies: Penicillins (Verified Allergy, Intermediate, rash, 08/15/19) RYLIE ROME DO Aug 18, 2019 15:35 JEFFY JEFFREY MD Aug 20, 2019 11:40
== END 2019-08-17 11:47 | disposition home or self-care (01) | DRG 872 ==
LOC: M ED 16:42 → M ED INP 23:52 → M ICU 08-16 04:15
PROVIDERS: ADMIT Internal Medicine; ATTEND Internal Medicine
DX: A41.9 Sepsis, unspecified organism (principal); A08.4 Viral intestinal infection, unspecified; I10 Essential (primary) hypertension; M10.9 Gout, unspecified; E78.5 Hyperlipidemia, unspecified; L57.0 Actinic keratosis; K21.9 Gastro-esophageal reflux disease without esophagitis; G47.30 Sleep apnea, unspecified; E66.9 Obesity, unspecified; Z68.34 Body mass index [BMI] 34.0-34.9, adult; Z79.82 Long term (current) use of aspirin; Z79.899 Other long term (current) drug therapy; Z88.0 Allergy status to penicillin

== ENCOUNTER → 2019-10-04 | Outpatient (REF) | payer MEDICARE, OTHER ==
[~2019-10-04] MED LIST changes: +ACET25TA12 PO; +ASPI-161 PO; +BACITAB PO; +CHOL4PW PO; +LOSA25TA14 PO; +META0.52 PO; +META0.522 PO; +MULTCAP PO; +OMEP10CA PO; +VITMTA PO; +ZYLO300T6 PO
== END ==
LOC: M LAB REF 17:20
PROVIDERS: ATTEND Dermatology
DX: L82.0 Inflamed seborrheic keratosis (principal); L90.5 Scar conditions and fibrosis of skin; L57.8 Other skin changes due to chronic exposure to nonionizing radiation

== ENCOUNTER → 2019-12-11 | Outpatient (REF) | payer MEDICARE, OTHER ==
[2019-12-12 13:24] LABS: ALBUMIN 4.2 GM/DL (3.2-5.2); BILIRUBIN,TOTAL 0.6 MG/DL (0.2-1.0); CALCIUM LEVEL 9.9 MG/DL (8.8-10.2); CHOLESTEROL RISK RATIO 5.97 (<5); CREATININE FOR GFR 1.32 MG/DL (0.70-1.30); GLOMERULAR FILTRATION RATE 56.6 (>42); POTASSIUM SERUM 4.8 MEQ/L (3.5-5.1); TOTAL PROTEIN 8.3 GM/DL (6.4-8.2); URIC ACID 6.2 MG/DL (3.5-7.2)
[2019-12-12 13:48] LABS: HEMOGLOBIN A1c 5.8 %
== END ==
LOC: M SFHCCLAY 14:39
PROVIDERS: ATTEND Family Medicine
DX: M1A.00X0 Idiopathic chronic gout, unspecified site, without tophus (tophi) (principal); I10 Essential (primary) hypertension; R73.01 Impaired fasting glucose

== ENCOUNTER → 2020-01-03 | Outpatient (CLI) | payer MEDICARE, BC, OTHER ==
[~2020-01-03] MED LIST changes: +GASTROGRAFIN SOLUTION 30ML (Q9963) As Ordered ONE; +ISOVUE-370 76% 100ML VIAL (Q9967) As Ordered ONE
--- NOTE | 2020-01-03 14:27 | REP ---
Clinical: Follow up abnormal findings. Technique: Axial contrast enhanced images from the lung bases to the pubic symphysis with coronal and sagittal re-formations using oral (per protocol) and 100 ml Isovue 370 intravenous contrast material. Delayed images of the abdomen obtained. Comparison: 08/15/2019, 11/02/2016. Findings: The previously noted inflammatory changes involving the mesentery including edematous infiltration and adenopathy has resolved. Mild fatty infiltration to the liver suggested without focal hepatic lesion. Evidence of prior cholecystectomy. A small hiatal hernia is identified at the gastroesophageal junction. Spleen, pancreas, bilateral adrenal glands and kidneys are relatively normal / stable. No perinephric stranding or hydronephrosis. The enteric system demonstrates diffuse diverticulosis without acute obstruction or inflammatory process. Normal terminal ileum and appendix are identified in the right lower quadrant. Pelvis demonstrates mild prostatomegaly with mass effect on the base of the bladder. No ascites. No free air. No adenopathy. Atherosclerotic changes to the aorta and vasculature without aneurysm or dissection. Musculoskeletal structures demonstrate degenerative changes including chronic L5 spondylolysis. Lung bases are clear. Impression: 1. Previously noted mesenteric infiltration and mesenteric adenopathy has resolved and likely represented a transient adenitis. 2. Hepatic steatosis without focal hepatic lesion. 3. Small hiatal hernia. 4. Mild prostatomegaly. Electronically Signed by Tai Valenzuela MD 01/03/2020 02:19 P
== END ==
LOC: M RAD 12:03
PROVIDERS: ATTEND Family Medicine
DX: R93.5 Abnormal findings on diagnostic imaging of other abdominal regions, including retroperitoneum (principal)
CPT/HCPCS: 74177; Q9963; Q9967

== ENCOUNTER → 2020-04-19 | Outpatient (REF) | payer MEDICARE, BC, OTHER ==
[~2020-04-19] MED LIST changes: -ASPI81TA85 PO; +ASPI81TA86 PO; -GASTROGRAFIN SOLUTION 30ML (Q9963) As Ordered ONE; -ISOVUE-370 76% 100ML VIAL (Q9967) As Ordered ONE; +LOPE2TAB12 PO; +MEGA1CAP3 PO; +PROB1CAP10 PO
[2020-04-19 17:25] LABS: ALBUMIN 3.9 GM/DL (3.2-5.2); ALT/SGPT 44 U/L (12-78); BILIRUBIN,TOTAL 0.6 MG/DL (0.2-1.0); BLOOD UREA NITROGEN 14 MG/DL (7-18); CALCIUM LEVEL 9.1 MG/DL (8.8-10.2); CARBON DIOXIDE LEVEL 28 MEQ/L (21-32); CHLORIDE LEVEL 105 MEQ/L (98-107); CHOLESTEROL LEVEL 183 MG/DL (<200); CHOLESTEROL RISK RATIO 5.382 (<5); GLOMERULAR FILTRATION RATE > 60.0 (>42); GLUCOSE, FASTING 89 MG/DL (70-100); HDL CHOLESTEROL 34 MG/DL (>40); LDL CHOLESTEROL 90 MG/DL (<100); NON-HDL-C 149 MG/DL; POTASSIUM SERUM 4.7 MEQ/L (3.5-5.1); SODIUM LEVEL 140 MEQ/L (136-145); TOTAL PROTEIN 8.1 GM/DL (6.4-8.2); TRIGLYCERIDES LEVEL 297 MG/DL (<150); URIC ACID 5.9 MG/DL (3.5-7.2)
[2020-04-19 18:27] LABS: HEMOGLOBIN A1c 6.2 %
== END ==
LOC: M SFHCCLAY 12:15
PROVIDERS: ATTEND Family Medicine
DX: I10 Essential (primary) hypertension (principal); E78.00 Pure hypercholesterolemia, unspecified; R73.01 Impaired fasting glucose; M1A.9XX0 Chronic gout, unspecified, without tophus (tophi); Z12.5 Encounter for screening for malignant neoplasm of prostate
CPT/HCPCS: 80053; 80061; 83036; 84550; G0103; G0463

== ENCOUNTER → 2020-05-04 | Outpatient (CLI) | payer MEDICARE, OTHER ==
[~2020-05-04] MED LIST changes: +ASPI81TA85 PO; -ASPI81TA86 PO
== END ==
LOC: M LABSMTC 08:31
PROVIDERS: ATTEND Anesthesiology
DX: Z11.59 Encounter for screening for other viral diseases (principal)
CPT/HCPCS: C9803; U0003

== ENCOUNTER 2020-05-07 06:52 | Day surgery (SDC) | payer MEDICARE, BC, OTHER ==
[~2020-05-07] VITALS: Ht 180.3 cm; Wt 115.6 kg
[2020-05-07] MEDS ORDERED: SIMETHICONE 40MG/0.6ML DROPS 30ML As Ordered ONE (06:59)
[2020-05-07] MEDS ORDERED: NS 1,000 ML IV ONE (07:00)
[2020-05-07] MEDS ORDERED: LIDOCAINE 2% 100MG/5ML SDV (FOR ANES.) As Ordered ONE (07:11)
[2020-05-07] MEDS ORDERED: propofoL 200 MG/20 ML VIAL As Ordered ONE ×2 (07:11→07:54)
[2020-05-07] MEDS ORDERED: fentaNYL 100 MCG/2 ML INJECTION (J3010) As Ordered ONE (07:15)
--- NOTE | 2020-05-07 08:41 | ROOR ---
Patient Name: Louis Lee Procedure Date: 05/07/2020 7:33 AM Date of : 1945 Age: 74 Room: [facility] Gender: Male Note Status: Finalized Procedure: Upper GI endoscopy Indications: Heartburn, Suspected gastro-esophageal reflux disease Providers: Herminio Tavares MD Referring MD: Enzo Rodriguez MD Requesting Provider: Medicines: Monitored Anesthesia Care Complications: No immediate complications. Procedure: Pre-Anesthesia Assessment: - Prior to the procedure, a History and Physical was performed, and patient medications and allergies were reviewed. The patient is competent. The risks and benefits of the procedure and the sedation options and risks were discussed with the patient. All questions were answered and informed consent was obtained. Patient identification and proposed procedure were verified by the physician, the nurse and the anesthesiologist in the procedure room. Mental Status Examination: alert and oriented. Airway Examination: normal oropharyngeal airway and neck mobility. Respiratory Examination: clear to auscultation. CV Examination: normal. Prophylactic Antibiotics: The patient does not require prophylactic antibiotics. Prior Anticoagulants: The patient has taken no previous anticoagulant or antiplatelet agents. ASA Grade Assessment: II - A patient with mild systemic disease. After reviewing the risks and benefits, the patient was deemed in satisfactory condition to undergo the procedure. The anesthesia plan was to use monitored anesthesia care (MAC). Immediately prior to administration of medications, the patient was re-assessed for adequacy to receive sedatives. The heart rate, respiratory rate, oxygen saturations, blood pressure, adequacy of pulmonary ventilation, and response to care were monitored throughout the procedure. The physical status of the patient was re-assessed after the procedure. The Endoscope was introduced through the mouth, and advanced to the second part of duodenum. The upper GI endoscopy was accomplished without difficulty. The patient tolerated the procedure well. Findings: LA Grade A (one or more mucosal breaks less than 5 mm, not extending between tops of 2 mucosal folds) esophagitis with no bleeding was found in the distal esophagus. Biopsies were taken with a cold forceps for histology. Verification of patient identification for the specimen was done by the physician and nurse using the patient's name, date and medical record number. Estimated blood loss was minimal. Scattered mild inflammation characterized by erythema and granularity was found in the gastric body and in the gastric antrum. Biopsies were taken with a cold forceps for Helicobacter pylori testing. The duodenal bulb and second portion of the duodenum were normal. Biopsies for histology were taken with a cold forceps for evaluation of celiac disease. Impression: - LA Grade A reflux esophagitis. Rule out Yadav's esophagus. Biopsied. - Gastritis. Biopsied. - Normal duodenal bulb and second portion of the duodenum. Biopsied. Recommendation: - Patient has a contact number available for emergencies. The signs and symptoms of potential delayed complications were discussed with the patient. Return to normal activities tomorrow. Written discharge instructions were provided to the patient. - Resume previous diet. - Continue present medications. - Await pathology results. - Follow an antireflux regimen. - Await pathology results. - Use Pepcid (famotidine) 20 mg PO BID. - Telephone GI clinic for pathology results in 2 weeks. - Return to primary care physician. Herminio Tavares MD Herminio Tavares MD 05/07/2020 8:41:21 AM Electronically signed by Herminio Tavares MD Number of Addenda: 0 Note Initiated On: 05/07/2020 7:33 AM Estimated Blood Loss: Estimated blood loss was minimal.
--- NOTE | 2020-05-07 08:46 | ROOR ---
Patient Name: Louis Lee Procedure Date: 05/07/2020 7:34 AM Date of : 1945 Age: 74 Room: [facility] Gender: Male Note Status: Finalized Procedure: Colonoscopy Indications: Screening for colorectal malignant neoplasm, Incidental - Chronic diarrhea Providers: Herminio Tavares MD Referring MD: Enzo Rodriguez MD Requesting Provider: Medicines: Monitored Anesthesia Care Complications: No immediate complications. Procedure: Pre-Anesthesia Assessment: - Prior to the procedure, a History and Physical was performed, and patient medications and allergies were reviewed. The patient is competent. The risks and benefits of the procedure and the sedation options and risks were discussed with the patient. All questions were answered and informed consent was obtained. Patient identification and proposed procedure were verified by the physician, the nurse and the anesthesiologist in the procedure room. Mental Status Examination: alert and oriented. Airway Examination: normal oropharyngeal airway and neck mobility. Respiratory Examination: clear to auscultation. CV Examination: normal. Prophylactic Antibiotics: The patient does not require prophylactic antibiotics. Prior Anticoagulants: The patient has taken no previous anticoagulant or antiplatelet agents. ASA Grade Assessment: II - A patient with mild systemic disease. After reviewing the risks and benefits, the patient was deemed in satisfactory condition to undergo the procedure. The anesthesia plan was to use monitored anesthesia care (MAC). Immediately prior to administration of medications, the patient was re-assessed for adequacy to receive sedatives. The heart rate, respiratory rate, oxygen saturations, blood pressure, adequacy of pulmonary ventilation, and response to care were monitored throughout the procedure. The physical status of the patient was re-assessed after the procedure. The Colonoscope was introduced through the anus and advanced to the cecum, identified by appendiceal orifice and ileocecal valve. The colonoscopy was performed without difficulty. The patient tolerated the procedure well. The quality of the bowel preparation was good. The ileocecal valve, appendiceal orifice, and rectum were photographed. Scope insertion time was 4 minutes. Scope withdrawal time was 10 minutes. The total duration of the procedure was 14 minutes. Findings: The perianal and digital rectal examinations were normal. Multiple small and large-mouthed diverticula were found from sigmoid to ascending colon. There was no evidence of diverticular bleeding. A 6 mm polyp was found in the descending colon. The polyp was sessile. The polyp was removed with a cold biopsy forceps. Resection and retrieval were complete. Verification of patient identification for the specimen was done by the physician and nurse using the patient's name, date and medical record number. Estimated blood loss was minimal. Non-bleeding external and internal hemorrhoids were found during retroflexion. The hemorrhoids were medium-sized. Normal mucosa was found in the entire colon. Biopsies for histology were taken with a cold forceps from the right colon, left colon and rectosigmoid colon for evaluation of microscopic colitis. Impression: - Moderate diverticulosis from sigmoid to ascending colon. There was no evidence of diverticular bleeding. - One 6 mm polyp in the descending colon, removed with a cold biopsy forceps. Resected and retrieved. - Non-bleeding external and internal hemorrhoids. - Normal mucosa in the entire examined colon. Biopsied. Recommendation: - Patient has a contact number available for emergencies. The signs and symptoms of potential delayed complications were discussed with the patient. Return to normal activities tomorrow. Written discharge instructions were provided to the patient. - High fiber diet. - Continue present medications. - Use fiber, for example Citrucel, Fibercon, Konsyl or Metamucil. - Await pathology results. - Repeat colonoscopy in 5-10 years for surveillance based on pathology results. - Telephone GI clinic for pathology results in 2 weeks. - Return to primary care physician. Herminio Tavares MD Herminio Tavares MD 05/07/2020 8:45:57 AM Electronically signed by Herminio Tavares MD Number of Addenda: 0 Note Initiated On: 05/07/2020 7:34 AM Estimated Blood Loss: Estimated blood loss was minimal.
[2020-05-07 08:50] VITALS: BP 109/58
== END 2020-05-07 09:11 | disposition home or self-care (01) ==
LOC: M OPP 06:52
PROVIDERS: ATTEND Internal Medicine Gastroenterology
DX: Z12.11 Encounter for screening for malignant neoplasm of colon (principal); K57.30 Diverticulosis of large intestine without perforation or abscess without bleeding; K63.5 Polyp of colon; K64.8 Other hemorrhoids; K21.0 Gastro-esophageal reflux disease with esophagitis; K29.70 Gastritis, unspecified, without bleeding; R12 Heartburn; Z79.82 Long term (current) use of aspirin; Z79.899 Other long term (current) drug therapy; Z88.0 Allergy status to penicillin; Z87.891 Personal history of nicotine dependence
CPT/HCPCS: 43239; 45380; 88305; J3010

== ENCOUNTER → 2020-11-13 | Outpatient (REF) | payer MEDICARE, OTHER ==
[~2020-11-13] MED LIST changes: -ASPI81TA85 PO; +ASPI81TA86 PO
[2020-11-13 12:00] LABS: CALCIUM LEVEL 9.5 MG/DL (8.8-10.2); CREATININE FOR GFR 1.48 MG/DL (0.70-1.30); GLOMERULAR FILTRATION RATE 49.5 (>42); POTASSIUM SERUM 4.2 MEQ/L (3.5-5.1)
[2020-11-13 14:40] LABS: HEMOGLOBIN A1c 5.8 %
== END ==
LOC: M SFHCCLAY 08:55
PROVIDERS: ATTEND Family Medicine
DX: R73.01 Impaired fasting glucose (principal); I10 Essential (primary) hypertension

== ENCOUNTER → 2021-05-21 | Outpatient (REF) | payer MEDICARE, OTHER ==
[~2021-05-21] MED LIST changes: +OMEP40CA4; -OMEP40CA97
[2021-05-22 12:37] LABS: HEMOGLOBIN A1c 5.9 %
[2021-05-22 12:41] LABS: ALBUMIN 4.1 GM/DL (3.2-5.2); BILIRUBIN,TOTAL 0.6 MG/DL (0.2-1.0); CALCIUM LEVEL 9.7 MG/DL (8.8-10.2); CHOLESTEROL RISK RATIO 5.162 (<5); CREATININE FOR GFR 1.27 MG/DL (0.70-1.30); POTASSIUM SERUM 5.5 MEQ/L (3.5-5.1); TOTAL PROTEIN 8.1 GM/DL (6.4-8.2)
== END ==
LOC: M SFHCCLAY 14:27
PROVIDERS: ATTEND Family Medicine
DX: E78.49 Other hyperlipidemia (principal); R73.01 Impaired fasting glucose; M1A.9XX0 Chronic gout, unspecified, without tophus (tophi)

== ENCOUNTER → 2021-05-27 | Outpatient (REF) | payer MEDICARE, OTHER ==
[2021-05-28 11:45] LABS: BASO # 0.1 10^3/uL (0.0-0.2); BASO % 0.7 % (0.0-1.0); EOS # 0.1 10^3/uL (0.0-0.5); EOS % 1.1 % (0.0-3.0); HEMATOCRIT 43.9 % (42.0-52.0); HEMOGLOBIN 14.3 g/dl (13.5-17.5); LYMPH # 2.5 10^3/uL (1.5-5.0); LYMPH % 29.1 % (24.0-44.0); MEAN CORPUSCULAR HEMOGLOBIN 30.3 pg (27.0-33.0); MEAN CORPUSCULAR HGB CONC 32.6 g/dl (32.0-36.5); MONO # 0.6 10^3/uL (0.0-0.8); NEUTROPHILS # 5.4 10^3/uL (1.5-8.5); NEUTROPHILS % 61.9 % (36.0-66.0); PLATELET COUNT, AUTOMATED 243 10^3/uL (150-450); RED BLOOD COUNT 4.72 10^6/uL (4.30-6.10); WHITE BLOOD COUNT 8.7 10^3/uL (4.0-10.0)
[2021-05-28 13:11] LABS: FOLATE 22.4 NG/ML (>5.4)
== END ==
LOC: M SFHCCLAY 15:33
PROVIDERS: ATTEND Family Medicine
DX: G62.9 Polyneuropathy, unspecified (principal); I10 Essential (primary) hypertension; E78.49 Other hyperlipidemia; G47.33 Obstructive sleep apnea (adult) (pediatric); M1A.9XX0 Chronic gout, unspecified, without tophus (tophi); M17.11 Unilateral primary osteoarthritis, right knee; K21.9 Gastro-esophageal reflux disease without esophagitis; R73.01 Impaired fasting glucose; R09.82 Postnasal drip; M54.40 Lumbago with sciatica, unspecified side

== ENCOUNTER → 2021-05-27 | Outpatient (CLI) | payer MEDICARE, BC ==
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
== END ==
LOC: M CLY 15:05
PROVIDERS: ATTEND Physician Assistant
DX: M51.36 Other intervertebral disc degeneration, lumbar region (principal); M51.37 Other intervertebral disc degeneration, lumbosacral region; M79.604 Pain in right leg; M79.605 Pain in left leg; M54.16 Radiculopathy, lumbar region; M48.061 Spinal stenosis, lumbar region without neurogenic claudication; M43.16 Spondylolisthesis, lumbar region; G62.9 Polyneuropathy, unspecified; I10 Essential (primary) hypertension; E78.49 Other hyperlipidemia; G47.33 Obstructive sleep apnea (adult) (pediatric); M1A.9XX0 Chronic gout, unspecified, without tophus (tophi); M17.11 Unilateral primary osteoarthritis, right knee; K21.9 Gastro-esophageal reflux disease without esophagitis; R73.01 Impaired fasting glucose; R09.82 Postnasal drip; M54.40 Lumbago with sciatica, unspecified side
CPT/HCPCS: 20610; 72114; 82607; 82746; 85025; G0463; J1040

== ENCOUNTER → 2021-06-16 | Outpatient (CLI) | payer MEDICARE, BC ==
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
== END ==
LOC: M CLY 10:54
PROVIDERS: ATTEND Neurological Surgery
DX: M19.011 Primary osteoarthritis, right shoulder (principal); M19.012 Primary osteoarthritis, left shoulder; M19.021 Primary osteoarthritis, right elbow; S80.851A Superficial foreign body, right lower leg, initial encounter; M16.11 Unilateral primary osteoarthritis, right hip; M76.9 Unspecified enthesopathy, lower limb, excluding foot; M51.36 Other intervertebral disc degeneration, lumbar region; M48.061 Spinal stenosis, lumbar region without neurogenic claudication; M43.16 Spondylolisthesis, lumbar region; W33.01XD Accidental discharge of shotgun, subsequent encounter; Y92.89 Other specified places as the place of occurrence of the external cause

== ENCOUNTER → 2021-06-17 | Outpatient (CLI) | payer MEDICARE, BC, OTHER ==
[~2021-06-17] MED LIST changes: +CLEO300C2 PO; +FAMO10TA50 PO; +LOSA25TA13 PO; -LOSA25TA14 PO; +LOSA50TA28; -LOSA50TA88
== END ==
LOC: M PLAIMG 14:23
PROVIDERS: ATTEND Physician Assistant
DX: M51.36 Other intervertebral disc degeneration, lumbar region (principal); M43.06 Spondylolysis, lumbar region; M79.604 Pain in right leg; M79.605 Pain in left leg; G57.93 Unspecified mononeuropathy of bilateral lower limbs

== ENCOUNTER 2021-09-06 18:15 | Emergency (ER) | payer MEDICARE, BC, OTHER ==
[~2021-09-06] VITALS: Ht 180.3 cm; Wt 120.0 kg
[~2021-09-06 18:15] MED LIST changes: -CLEO300C2 PO; -FAMO10TA50 PO; -LOSA25TA13 PO; +LOSA25TA14 PO; -LOSA50TA28; +LOSA50TA88
[2021-09-06 18:16] VITALS: BP 158/77
--- OUTSIDE RECORDS SUMMARY | 2021-09-06 18:38 | CCD | Continuity of Care Document ---
Author Author [facility] Unknown Address [address] [place] [address] [place] [address] Phone [phone] Care Team Providers Care Transportation Planner Name Role Phone Osorio Dickerson DO AUTM [phone] Problems Description No Information Available Social History Type Date Description Comments Sex Unknown Allergies, Adverse Reactions, Alerts Description No Information Available Medications Description No Information Available Immunizations Description No Information Available Vital Signs Description No Information Available Results Description No Information Available Procedures Description No Information Available Medical Devices Description No Information Available Encounters Description No Information Available Assessments Date Code Description Provider 08/25/2021 Z20.828 Contact with and (perdomo spected) exposure to other viral communicable diseases JAN Retana Plan of Treatment No Information Available Functional Status Description No Information Available Mental Status Description No Information Available Referrals Description No Information Available
--- OUTSIDE RECORDS SUMMARY | 2021-09-06 18:38 | CCD | Continuity of Care Document ---
Author Author [facility] Organization Unknown Address [address] [place] [address] Phone [phone] Care Team Providers Care Sleeve Tailor Name Role Phone Osorio Dickerson DO [facility] [phone] Problems Description No Information Available Social History [...]
--- OUTSIDE RECORDS SUMMARY | 2021-09-06 18:38 | CCD ---
Author Author [facility] Organization [facility] Address Unknown Phone Unavailable Care Team Providers Care Saw Repairer Name Role Phone Osorio Dickerson Unavailable PROBLEMS Type Condition ICD9-CM Code DPO12-MP Code Onset Dates Condition S tatus W/U Status Risk SNOMED Code Notes Problem Dry skin L85.3 Active confirmed 37838996 Problem Seborrheic keratoses L82.1 Active confirmed 332209067 Problem Acrochordon L91.8 Active confirmed 74957118 2 Problem History of nonmelanoma skin cancer Z85.828 Activ e confirmed 143414906 Problem Idiopathic chronic gout without tophus, unspecified site M1A.00X0 Active confirmed 03749550 Problem 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 Active confirm ed 699923233 Problem Essential hypertension I10 Active confirmed 25571708 Problem Obstructive sleep apnea syndrome G47.33 Active conf irmed 23183294 Problem Thoracic aortic aneurysm without rupture I71.2 Active confirmed 02804183 Problem Neuropathy G62.9 Active confirmed 942881574 Problem Gastroesophageal reflux disease, esophagitis pre sence not specified K21.9 Active confirmed 632083118 Problem Hx of nonmelanoma skin cancer Z85.828 Active confir med 321883769 Problem Low back pain with radiation M54.40 Active confirme d 169630474 Problem Chronic gout without tophus, unspecified cause, unspecified site M1A.9XX0 Active confirmed 560183252 Problem Pure hypercholesterolemia, unspecified E78.00 A ctive confirmed 217442748 Problem Other hyperlipidemia E78.49 Active confirmed 37712849 Problem Primary osteoarthritis of right knee M17.11 Act chapis confirmed [id number] ALLERGIES Allergen (clinical drug ingredient) Drug/Non Drug Allergy do cumented on EMR Reaction Allergy Type Onset Date Status Penicillin (For Allergies Use Only) Unknown Drug Allerg y Active ENCOUNTERS from 1945 to 2021-06-16 Encounter Location Date Provider Diagnosis [facility] Vicente CLARK [phone] [place] [address] Jun, Osorio Tuan IMMUNIZATIONS Vaccine Route Administration Date Status Influenza Pharmacy Given Unknown Nov 19, 2020 Adminis tered Influenza 18 yrs & older [facility] Unknown Aug 17, 2019 Administered Influenza 18 yrs & older Flublok Unknown Aug 16, 2018 Administered Zoster 50mcg/0.5mL Shingrix Unknown Aug 16, 2018 Admi nistered Pneumococcal Adult 0.5mL Pneumovax 23 IM Intramuscular Nov 19 021 Administered TDAP 0.5mL (Boostrix) Unknown Jun 25, 2014 Administer ed Pneumococcal 0.5mL Prevnar 13 Unknown Aug 16, 2018 Ad ministered SOCIAL HISTORY Tobacco Use: Social History Observation Description Date Details (start date - stop date) Former Smoker Sex Assigned At : Social History Observation Description Sex Assigned At Unknown Education: Question Answer Notes Level of Education: Finished High School Audit Question Answer Notes Total Score: 1 Interpretation: Alcohol Education Language: Question Answer Notes Languages spoken: [place] Judaism: Question Answer Notes Judaism 06 [employer] Sexual Hx: Question Answer Notes Had sex in the last 12 months (vaginal, oral, or anal)? No Have you ever had an STD? No Drug and Alcohol Question Answer Notes Total Score: 0 Interpretation: No problems reported Alcohol Screening: Question Answer Notes Did you have a drink containing alcohol in the past year? No Points 0 Interpretation Negative BMI Care Goal Follow-Up Question Answer Notes Above Normal BMI Follow-Up Dietary management educatio n, guidance, and counseling Tobacco Use: Question Answer Notes Are you a: former smoker How long has it been since you last smoked? > 10 years REASON FOR REFERRAL No Information VITAL SIGNS No information MEDICATIONS Medication SIG (Take, Route, Frequency, Duration) Notes Start Da te End Date Status Probiotic - Orally Active Cholestyramine 4 GM 1 packet mixed with water or non-carbonated drink Orally Twice a day for 90 day(s) prn Sep, Active Simvastatin 10 MG 1 tablet in the evening Orally Once a day Active Famotidine 40 MG 1 tablet at bedtime Orally Once a day for 30 day(s) Active Allopurinol 100 MG TAKE 1 TABLET DAILY for 90 Active Aspir-Low 81 MG 1 tablet Orally Once a day Active Losartan Potassium 25 MG 1 tablet Orally Once a day Active Azelastine HCl 137 MCG/SPRAY 1 puff in each nostril Na enrique Twice a day for 30 day(s) Nov, Active CPAP mask as directed Full face mask with tubing Daily Dx: G47.33 Aug, Active Acetaminophen PM 500-25 MG 1 tablet at bedtime as needed Orally Onc e a day Active Fluticasone Propionate 50 MCG/ACT 1 spray in each nost ril Nasally Once a day for 30 day(s) Nov, Active Multivitamin Men 50+ - as directed Orally Active Allopurinol 100 MG 1 tablet Orally Once a day Active Simvastatin 10 MG 1 tablet in the evening Orally Once a day for 90 Active Metamucil 0.52 GM 1 cap Orally once daily as needed prn Active PROCEDURES No Information RESULTS No Results REASON FOR VISIT XRAYS MEDICAL (GENERAL) HISTORY Type Description Date Medical History HTN Medical History Gout Medical History Acid Reflux Medical History Hx of skin cancer Medical History Actinic keratosis Medical History Impaired fasting glucose Surgical History hernia age 6 weeks Surgical History bicep right arm 1984 Surgical History torn meniscus right knee 30 years ago Surgical History Gall bladder removed 2012 Surgical History leg infection right knee I&D 2013 Surgical History left index finger-growth removed 1979 Surgical History Spots removed by 2018 Surgical History Colonoscopy- polyp X1 04/2020 Surgical History EGD/ Colonoscopy- Dr. Tavares esophagi tis/gastritis 04/2020 Hospitalization History [facility]-leg infection x 10 days 2013 Hospitalization History [place] [place]-? bowel obstruction-v/d -fluids x 2 days 11/19/18-11/21/18 Hospitalization History [facility]-Vomiting/diarrhea 08/17-08/19/19 Goals Section No Information Health Concerns No Information MEDICAL EQUIPMENT No Information MENTAL STATUS No Information FUNCTIONAL STATUS No Information ASSESSMENTS No Information PLAN OF TREATMENT Medication Medication Name Sig Start Date Stop Date Famotidine 40 MG 1 tablet at bedtime Orally Once a day for 30 da y(s) Allopurinol 100 MG 1 tablet Orally Once a day Losartan Potassium 25 MG 1 tablet Orally Once a day Simvastatin 10 MG 1 tablet in the evening Orally Once a day Next Appt Details Provider Name:Corrie Mustafa, 2022-04-22 11:30:00 AM, [address] [facility], , [place], [address], Insurance Providers Payer Name Payer Address Payer Phone Insured Name Patient Relati onship to Insured Coverage Start Date Coverage End Date [facility] [address] [facility] [id number] HARLAN DOZIER [id number] MEDICARE Part A and B [address] [place] [phone] HARLAN DOZIER self
--- OUTSIDE RECORDS SUMMARY | 2021-09-06 18:38 | CCD | Continuity of Care Document ---
Author Author Louis ARIZMENDI MD Organization Unknown Address [address] [place] [address], [address] [place] [address] Phone [phone] Care Team Providers Care Pocket Cutter Name Role Phone Central Scheduling AUTM [phone] Cedric Portillo AUTM [phone] Osorio Dickerson D.O. AUTM [phone] Problems Active Problems Provider Date Essential hypertension Herminio Tavares M.D. Onset: 04/2019 Social History Type Date Description Comments Sex Unknown ETOH Use Rarely Recreational Drug Use Denies Drug Use Tobacco Use Start: 11/15/66 End: 11/15/69 Patient is a forme r smoker 1 PPD Allergies, Adverse Reactions, Alerts Active Allergies Reaction Severity Comments Date Penicillin V 03/28/2020 Inactive Allergies NKDA 03/20/2019 Medications Active Medications SIG Qnty Indications Ordering Provide r Date Famotidine 20mg Tablets Take 1 Tablet Twice A Day (Terminal System Operator On An Empty Stomach And AT Bedtime) 180tabs Herminio Tavares M.D. 05/21/2020 Losartan Potassium 25mg Tablets 1tab po qd Unknown Allopurinol 100mg Tablets 1 t ab po qd Unknown Simvastatin 10mg Tablets 1tab po qd Unknown Aspir-Low 81mg Tablets DR 1ta b po qd Unknown Immunizations Description No Information Available Vital Signs Date Vital Result Comment 06/16/2021 2:05pm BP Systolic 135 mmHg rt 140/76 BP Diastolic 79 mmHg rt 140/76 Heart Rate 80 /min Body Temperature 98.9 F Height 71 inches 5'11" Weight 263.12 lb BMI (Body Mass Index) 36.7 kg/m2 [place] Body Weight 172 lb Weight 119.353 kg BSA (Body Surface Area) 2.37 m2 03/28/2020 10:59am BP Systolic 134 mmHg BP Diastolic 68 mmHg Results Description No Information Available Procedures Description No Information Available Medical Devices Description No Information Available Encounters Description No Information Available Assessments Date Code Description Provider 06/16/2021 I73.00 Raynaud's syndrome without gangr bj Clive Arizmendi MD Plan of Treatment No Information Available Functional Status Description No Information Available Mental Status Description No Information Available Referrals Refer to Reason for Referral Status Appt Date Clive Arizmendi MD BILATERAL LOWER EXTREMITY PAIN Scheduled 06/16/[address] [address] [phone]
--- OUTSIDE RECORDS SUMMARY | 2021-09-06 18:38 | CCD | Continuity of Care Document ---
Author Author Louis ARIZMENDI MD Organization Unknown Address [address] [place] [address], [address] [place] [address] Phone [phone] Care Team Providers Care Manager Clinical Services Name Role Phone Central Scheduling AUTM [phone] Cedric Portillo AUTM [phone] Osorio Dickerson D.O. AUTM [phone] Problems Active Problems Provider Date Essential hypertension [...] Tablets Take 1 Tablet Twice A Day (Senior Marketing Specialist On An Empty Stomach And AT Bedtime) [...] lb BMI (Body Mass Index) 36.7 kg/m2 [place] Body Weight 172 lb Weight 119.353 kg [...] BILATERAL LOWER EXTREMITY PAIN Scheduled 06/16/[address] [address] [phone]
--- OUTSIDE RECORDS SUMMARY | 2021-09-06 18:38 | CCD | Continuity of Care Document ---
Author Author [facility]GR[facility] Organization Unknown Address [address] [place] [address] Phone [phone] Care Team Providers Care Wire Spring Relay Adjuster Name Role Phone Osorio Dickerson DO [facility] [[email or web address]M [phone] Problems Description No Information Available Social History [...]
--- OUTSIDE RECORDS SUMMARY | 2021-09-06 18:38 | CCD ---
Author Author [facility] Organization [facility] Address Unknown Phone Unavailable Care Team Providers Care Pilot Manager Name Role Phone David ARIZMENDI MD Unavailable Unavailable David ARIZMENDI MD Unavailable Unavailable David ARIZMENDI MD Unavailable Unavailable David ARIZMENDI MD Unavailable Unavailable David ARIZMENDI MD Unavailable Unavailable David ARIZMENDI MD Unavailable Unavailable David ARIZMENDI MD Unavailable Unavailable INFO NEEDED, INFO Unavailable Unavailable ERICKSON, WESLEY WADE RPA-C Unavailable Unavailable ERICKSON, WESLEY WADE RPA-C Unavailable Unavailable ERICKSON, WESLEY WADE RPA-C Unavailable Unavailable ERICKSON, WESLEY WADE RPA-C Unavailable Unavailable ERICKSON, WESLEY WADE RPA-C Unavailable Unavailable ERICKSON, WESLEY WADE RPA-C Unavailable Unavailable ERICKSON, WESLEY WADE RPA-C Unavailable Unavailable ERICKSON, WESLEY WADE RPA-C Unavailable Unavailable ERICKSON, WESLEY WADE RPA-C Unavailable Unavailable ERICKSON, WESLEY WADE RPA-C Unavailable Unavailable ERICKSON, WESLEY WADE RPA-C Unavailable Unavailable ERICKSON, WESLEY WADE RPA-C Unavailable Unavailable ERICKSON, WESLEY WADE RPA-C Unavailable Unavailable ERICKSON, WESLEY WADE RPA-C Unavailable Unavailable ERICKSON, WESLEY WADE RPA-C Unavailable Unavailable ERICKSON, WESLEY WADE RPA-C Unavailable Unavailable ERICKSON, WESLEY WADE RPA-C Unavailable Unavailable ERICKSON, WESLEY WADE RPA-C Unavailable Unavailable ERICKSON, WESLEY WAED RPA-C Unavailable Unavailable ERICKSON, WESLEY WADE RPA-C Unavailable Unavailable ERICKSON, WESLEY WADE RPA-C Unavailable Unavailable ERICKSON, WESLEY WADE RPA-C Unavailable Unavailable ERICKSON, WESLEY WADE RPA-C Unavailable Unavailable ERICKSON, WESLEY WADE RPA-C Unavailable Unavailable ERICKSON, WESLEY WADE RPA-C Unavailable Unavailable ERICKSON, WESLEY WADE RPA-C Unavailable Unavailable ERICKSON, WESLEY WADE RPA-C Unavailable Unavailable ERICKSON, WESLEY WADE RPA-C Unavailable Unavailable ERICKSON, WESLEY WADE RPA-C Unavailable Unavailable ERICKSON, WESLEY WADE RPA-C Unavailable Unavailable ERICKSON, WESLEY WADE RPA-C Unavailable Unavailable ERICKSON, WESLEY WADE RPA-C Unavailable Unavailable ERICKSON, WESLEY WADE RPA-C Unavailable Unavailable ERICKSON, WESLEY WADE RPA-C Unavailable Unavailable ERICKSON, WESLEY WADE RPA-C Unavailable Unavailable ERICKSON, WESLEY WADE RPA-C Unavailable Unavailable ERICKSON, WESLEY WADE RPA-C Unavailable Unavailable ERICKSON, WESLEY WADE RPA-C Unavailable Unavailable ERICKSON, WESLEY WADE RPA-C Unavailable Unavailable ERICKSON, WESLEY WADE RPA-C Unavailable Unavailable ERICKSON, WESLEY WADE RPA-C Unavailable Unavailable ERICKSON, WESLEY WADE RPA-C Unavailable Unavailable ERICKSON, WESLEY WADE RPA-C Unavailable Unavailable HUIZENGA, Danisha MITCHELL DO Unavailable Unavailable HUIZENGA, Danisha MITCHELL DO Unavailable Unavailable HUIZENGA, Danisha MITCHELL DO Unavailable Unavailable HUIZENGA, Danisha MITCHELL DO Unavailable Unavailable HUIZENGA, Danisha MITCHELL DO Unavailable Unavailable HUIZENGA, Danisha MITCHELL DO Unavailable Unavailable HUIZENGA, Danisha MITCHELL DO Unavailable Unavailable HUIZENGA, Danisha MITCHELL DO Unavailable Unavailable HUIZENGA, Danisha MITCHELL DO Unavailable Unavailable HUIZENGA, Danisha MITCHELL DO Unavailable Unavailable HUIZENGA, Danisha MITCHELL DO Unavailable Unavailable HUIZENGA, Danisha MITCHELL DO Unavailable Unavailable HUIZENGA, Danisha MITCHELL DO Unavailable Unavailable HUIZENGA, Danisha MITCHELL DO Unavailable Unavailable HUIZENGA, Danisha MITCHELL DO Unavailable Unavailable HUIZENGA, Danisha MITCHELL DO Unavailable Unavailable HUIZENGA, Danisha MITCHELL DO Unavailable Unavailable HUIZENGA, Danisha MITCHELL DO Unavailable Unavailable HUIZENGA, Danisha MITCHELL DO Unavailable Unavailable HUIZENGA, Danisha MITCHELL DO Unavailable Unavailable HUIZENGA, Danisha MITCHELL DO Unavailable Unavailable HUIZENGA, Danisha MITCHELL DO Unavailable Unavailable HUIZENGA, Danisha MITCHELL DO Unavailable Unavailable HUIZENGA, Danisha MITCHELL DO Unavailable Unavailable HUIZENGA, Danisha MITCHELL DO Unavailable Unavailable HUIZENGA, Danisha MITCHELL DO Unavailable Unavailable HUIZENGA, Danisha MITCHELL DO Unavailable Unavailable HUIZENGA, Danisha MITCHELL DO Unavailable Unavailable HUIZENGA, Danisha MITCHELL DO Unavailable Unavailable HUIZENGA, Danisha MITCHELL DO Unavailable Unavailable HUIZENGA, Danisha MITCHELL DO Unavailable Unavailable HUIZENGA, Danisha MITCHELL DO Unavailable Unavailable HUIZENGA, Danisha MITCHELL DO Unavailable Unavailable HUIZENGA, Danisha MITCHELL DO Unavailable Unavailable HUIZENGA, Danisha MITCHELL DO Unavailable Unavailable HUIZENGA, Danisha MITCHELL DO Unavailable Unavailable HUIZENGA, Danisha MITCHELL DO Unavailable Unavailable HUIZENGA, Danisha MITCHELL DO Unavailable Unavailable HUIZENGA, Danisha MITCHELL DO Unavailable Unavailable HUIZENGA, aDnisha MITCHELL DO Unavailable Unavailable HUIZENGA, Danisha MITCHELL DO Unavailable Unavailable HUIZENGA, Danisha MITCHELL DO Unavailable Unavailable HUIZENGA, Danisha MITCHELL DO Unavailable Unavailable HUIZENGA, Danisha MITCHELL DO Unavailable Unavailable HUIZENGA, Danisha MITCHELL DO Unavailable Unavailable HUIZENGA, Danisha MITCHELL DO Unavailable Unavailable HUIZENGA, Danisha MITCHELL DO Unavailable Unavailable HUIZENGA, Danisha MITCHELL DO Unavailable Unavailable HUIZENGA, Danisha MITCHELL DO Unavailable Unavailable HUIZENGA, Danisha MITCHELL DO Unavailable Unavailable HUIZENGA, Danisha MITCHELL DO Unavailable Unavailable HUIZENGA, Danisha MITCHELL DO Unavailable Unavailable HUIZENGA, Danisha MITCHELL DO Unavailable Unavailable HUIZENGA, Danisha MITCHELL DO Unavailable Unavailable HUIZENGA, Danisha MITCHELL DO Unavailable Unavailable HUIZENGA, Danisha MITCHELL DO Unavailable Unavailable HUIZENGA, Danisha MITHCELL DO Unavailable Unavailable HUIZENGA, Danisha MITCHELL DO Unavailable Unavailable HUIZENGA, Danisha MITCHELL DO Unavailable Unavailable HUIZENGA, Danisha MITCHELL DO Unavailable Unavailable HUIZENGA, Danisha MITCHELL DO Unavailable Unavailable HUIZENGA, Danisha MITCHELL DO Unavailable Unavailable HUIZENGA, Danisha MITCHELL DO Unavailable Unavailable HUIZENGA, Danisha MITCHELL DO Unavailable Unavailable HUIZENGA, Danisha MITCHELL DO Unavailable Unavailable HUIZENGA, Danisha MITCHELL DO Unavailable Unavailable HUIZENGA, D PAULA DO Unavailable Unavailable HUIZENGA, D PAULA DO Unavailable Unavailable HUIZENGA, D PAULA DO Unavailable Unavailable HUIZENGA, D PAULA DO Unavailable Unavailable HUIZENGA, D PAULA DO Unavailable Unavailable HUIZENGA, D PAULA DO Unavailable Unavailable HUIZENGA, D PAULA DO Unavailable Unavailable HUIZENGA, D PAULA DO Unavailable Unavailable HUIZENGA, D PAULA DO Unavailable Unavailable HUIZENGA, D PAULA DO Unavailable Unavailable HUIZENGA, D PAULA DO Unavailable Unavailable Faltyn, R Cedric R-PA Unavailable Unavailable Faltyn, R Cedric R-PA Unavailable Unavailable Faltyn, R Cedric R-PA Unavailable Unavailable Faltyn, R Cedric R-PA Unavailable Unavailable Faltyn, R Cedric R-PA Unavailable Unavailable Faltyn, R Cedric R-PA Unavailable Unavailable Faltyn, R Cedric R-PA Unavailable Unavailable Faltyn, R Cedric R-PA Unavailable Unavailable Faltyn, R Cedric R-PA Unavailable Unavailable Faltyn, R Cedric R-PA Unavailable Unavailable Faltyn, R Cedric R-PA Unavailable Unavailable Faltyn, R Cedric R-PA Unavailable Unavailable Faltyn, R Cedric R-PA Unavailable Unavailable Faltyn, R Cedric R-PA Unavailable Unavailable Faltyn, R Cedric R-PA Unavailable Unavailable Faltyn, R Cedric R-PA Unavailable Unavailable Faltyn, R Cedric R-PA Unavailable Unavailable Faltyn, R Cedric R-PA Unavailable Unavailable Faltyn, R Cedric R-PA Unavailable Unavailable Faltyn, R Cedric R-PA Unavailable Unavailable Faltyn, R Cedric R-PA Unavailable Unavailable Faltyn, R Cedric R-PA Unavailable Unavailable Faltyn, R Cedric R-PA Unavailable Unavailable Faltyn, R Cedric R-PA Unavailable Unavailable Faltyn, R Cedric R-PA Unavailable Unavailable Faltyn, R Cedric R-PA Unavailable Unavailable Faltyn, R Cedric R-PA Unavailable Unavailable Faltyn, R Cedric R-PA Unavailable Unavailable Faltyn, R Cedric R-PA Unavailable Unavailable Faltyn, R Cedric R-PA Unavailable Unavailable Faltyn, R Cedric R-PA Unavailable Unavailable Faltyn, R Cedric R-PA Unavailable Unavailable Faltyn, R Cedric R-PA Unavailable Unavailable Faltyn, R Cedric R-PA Unavailable Unavailable Faltyn, R Cedric R-PA Unavailable Unavailable Faltyn, R Cedric R-PA Unavailable Unavailable Faltyn, R Cedric R-PA Unavailable Unavailable Faltyn, R Cedric R-PA Unavailable Unavailable Faltyn, R Cedric R-PA Unavailable Unavailable Faltyn, R Cedric R-PA Unavailable Unavailable Re-disclosure Warning The records that you are about to access may contain information from federally-assisted alcohol or drug abuse programs. If such information is present, then the following federally mandated warning applies: This information has been disclosed to you from records protected by federal confidentiality rules (42 CFR part 2). The federal rules prohibit you from making any further disclosure of this information unless further disclosure is expressly permitted by the written consent of the person to whom it pertains or as otherwise permitted by 42 CFR part 2. A general authorization for the release of medical or other information is NOT sufficient for this purpose. The Federal rules restrict any use of the information to criminally investigate or prosecute any alcohol or drug abuse patient.The records that you are about to access may contain highly sensitive health information, the redisclosure of which is protected by Article 27-F of the [facility] Public Health law. If you continue you may have access to information: Regarding HIV / AIDS; Provided by facilities licensed or operated by the [facility] Office of Mental Health; or Provided by the [facility] Office for People With Developmental Disabilities. If such information is present, then the following [facility] mandated warning applies: This information has been disclosed to you from confidential records which are protected by state law. State law prohibits you from making any further disclosure of this information without the specific written consent of the person to whom it pertains, or as otherwise permitted by law. Any unauthorized further disclosure in violation of state law may result in a fine or half-way sentence or both. A general authorization for the release of medical or other information is NOT sufficient authorization for further disc losure. Family History Family Member Name Family Member Gender Family Member Status Date o f Status Description Data Source(s) Unknown Unknown Problem MEDENT ([facility], ) Encounters Encounter Providers Location Date Indications Data Source(s ) Outpatient Attender: Cedricandrea SALTER 08/15/2021 01:55: 00 PM EDT [facility] Outpatient Attender: Cedric ROSSttender: MONSERRAT INFO NEEDED 08/06/2021 08:56:00 AM EDT - 08/13/2021 01:55:00 PM EDT [facility] pital Patient discharged. Outpatient Attender: GORGE Oswald/Vin/Abdi/Milka 06/16/2021 02:00:00 PM EDT MEDENT ([facility]) Unknown [address] [facility] [facility] [place] [address] 06/16/2021 12:00:00 AM EDT eCW1 ([facility]) Outpatient [address] [facility] [place] [address] 05/27/2021 12:00:00 AM EDT eCW1 ([facility]) Outpatient Attender: Cedric Scotter: Leny ANGUIANO DO [id number] 05/14/2021 12:00:00 AM EDT - 05/14/2021 11:57:35 AM EDT [facility] Outpatient [address] [facility] [place] [address] 04/17/2021 12:00:00 AM EDT eCW1 ([facility]) Unknown [address] [facility] [place] [address] 03/05/2021 12:00:00 AM EDT eCW1 ([facility]) Unknown [address] [facility] [place] [address] 03/05/2021 12:00:00 AM EDT eCW1 ([facility]) Unknown [address] [facility] [place] [address] 03/03/2021 12:00:00 AM EDT eCW1 ([facility]) Unknown [address] [facility] [place] [address] 02/17/2021 12:00:00 AM EDT eCW1 ([facility]) Unknown [address] [facility] [place] [address] 02/06/2021 12:00:00 AM EDT eCW1 ([facility]) Unknown [address] [facility] [place] [address] 01/06/2021 12:00:00 AM EST eCW1 ([facility]) Unknown [address] [facility] [place] [address] 12/02/2020 12:00:00 AM EST eCW1 ([facility]) Outpatient [address] [facility] [place] [address] 11/19/2020 12:00:00 AM EST eCW1 ([facility]) Unknown [address] [facility] [place] [address] 11/12/2020 12:00:00 AM EST eCW1 ([facility]) [facility] [address] [place] [address] 10/07/2020 12:00:00 AM EST eCW1 ([facility] [place]) Unknown [address] [facility] [place] [address] 09/11/2020 12:00:00 AM EDT [facility]CW1 [facility]) Outpatient Attender: WADE ERICKSON RPA-Saeed EMERGENCY ROOM-LAB 0 04/04/2018 04:16:00 PM EDT - 04/04/2018 04:16:00 PM [facility] Immunizations Vaccine Date Status Description Data Source(s) COVID-19 VACCINE Pfizer 08/26/2021 12:00:00 AM EDT completed [facility] Vaccine Series Complete: YESThis Data wa s Submitted to [facility] Via [employer]. COVID-19 VACC, MRNA(PFIZER)/PF 08/26/2021 12:00:00 AM EDT completed [facility] COVID-19 VACCINE Pfizer 01/26/2021 12:00:00 AM EST completed [facility] Vaccine Series Complete: YESThis Data wa s Submitted to [facility] [employer]. COVID-19 VACCINE Pfizer 01/05/2021 12:00:00 AM EST completed [facility] Vaccine Series Complete: NOThis Data was Submitted to [facility] [employer]. pneumococcal polysaccharide PPV23 11/19/2020 11:12:00 AM EST comple osvaldo eCW1 ([facility]) pneumococcal polysaccharide PPV23 11/19/2020 11:12:00 AM EST comple osvaldo eCW1 ([facility]) pneumococcal polysaccharide PPV23 11/19/2020 11:12:00 AM EST comple osvaldo eCW1 ([facility]) pneumococcal polysaccharide PPV23 11/19/2020 11:12:00 AM EST comple osvaldo eCW1 ([facility]) pneumococcal polysaccharide PPV23 11/19/2020 11:12:00 AM EST comple osvaldo eCW1 ([facility]) pneumococcal polysaccharide PPV23 11/19/2020 11:12:00 AM EST comple osvaldo eCW1 ([facility]) pneumococcal polysaccharide PPV23 11/19/2020 11:12:00 AM EST comple osvaldo eCW1 ([facility]) pneumococcal polysaccharide PPV23 11/19/2020 11:12:00 AM EST comple osvaldo eCW1 ([facility]) pneumococcal polysaccharide PPV23 11/19/2020 11:12:00 AM EST comple osvaldo eCW1 ([facility]) pneumococcal polysaccharide PPV23 11/19/2020 11:12:00 AM EST comple osvaldo eCW1 ([facility]) pneumococcal polysaccharide PPV23 11/19/2020 11:12:00 AM EST comple osvaldo eCW1 ([facility]) IIV3. This is one of two codes replacing CVX 15, which is being retired. 11/19/2020 10:57:00 AM EST completed eCW1 ([facility]) IIV3. This is one of two codes replacing CVX 15, which is being retired. 11/19/2020 10:57:00 AM EST completed eCW1 ([facility]) IIV3. This is one of two codes replacing CVX 15, which is being retired. 11/19/2020 10:57:00 AM EST completed eCW1 ([facility]) IIV3. This is one of two codes replacing CVX 15, which is being retired. 11/19/2020 10:57:00 AM EST completed eCW1 ([facility]) IIV3. This is one of two codes replacing CVX 15, which is being retired. 11/19/2020 10:57:00 AM EST completed eCW1 ([facility]) IIV3. This is one of two codes replacing CVX 15, which is being retired. 11/19/2020 10:57:00 AM EST completed eCW1 ([facility]) IIV3. This is one of two codes replacing CVX 15, which is being retired. 11/19/2020 10:57:00 AM EST completed eCW1 ([facility]) IIV3. This is one of two codes replacing CVX 15, which is being retired. 11/19/2020 10:57:00 AM EST completed eCW1 ([facility]) IIV3. This is one of two codes replacing CVX 15, which is being retired. 11/19/2020 10:57:00 AM EST completed eCW1 ([facility]) IIV3. This is one of two codes replacing CVX 15, which is being retired. 11/19/2020 10:57:00 AM EST completed eCW1 ([facility]) IIV3. This is one of two codes replacing CVX 15, which is being retired. 11/19/2020 10:57:00 AM EST completed eCW1 ([facility]) Medications Medication Brand Name Start Date Product Form Dose Route Admi nistrative Instructions Pharmacy Instructions Status Indications Reaction Description Data Source(s) Simvastatin 10 MG Oral Tablet simvastatin (ZOCOR) 10 M G tablet simvastatin (ZOCOR) 10 MG tablet 05/01/2021 12:00:00 AM EDT ac tive [facility] Losartan Potassium 25 MG Oral Tablet losartan (COZAAR) 25 MG tablet losartan (COZAAR) 25 MG tablet 04/15/2021 12:00:00 AM EDT a ctive [facility] Allopurinol 100 MG Oral Tablet allopurinol (ZYLOPRIM) 100 MG tablet allopurinol (ZYLOPRIM) 100 MG tablet 04/15/2021 12:00:00 AM EDT active [facility] 4 gram 03/05/2021 12:00:00 AM EDT powder in packet 180 MIX ONE PACKET WITH WATER OR NON-CARBONATED DRINK TWO TIMES A DAY MIX ONE PACKET WITH WATER OR NON- CARBONATED DRINK TWO TIMES A DAY SOLD: 03/05/2021 [facility] 300 mg 03/05/2021 12:00:00 AM EDT capsule 60 TAKE ONE CAPSULE BY MOUTH BEFORE DINNER AND BEDTIME TAKE ONE CAPSULE BY MOUTH BEFORE DINNER AND BEDTIME SOLD: 03/05/2021 [facility] Fluticasone Propionate 50 MCG/ACT Fluticasone Propionate 50 MCG/ACT 11/19/2020 12:00:00 AM EST 1.0 {spray_in_each_nostril} acti ve Fluticasone Propionate 50 MCG/ACT eCW1 ([facility]) Azelastine HCl 137 MCG/SPRAY Azelastine HCl 137 MCG/SPRAY 12:00:00 AM EST 1.0 {puff_in_each_nostril} active Azelastine HCl 137 MCG/SPRAY eCW1 ([facility]) Fluticasone Propionate 50 MCG/ACT Fluticasone Propionate 50 MCG/ACT 11/19/2020 12:00:00 AM EST 1.0 {spray_in_each_nostril} acti ve Fluticasone Propionate 50 MCG/ACT eCW1 ([facility]) Azelastine HCl 137 MCG/SPRAY Azelastine HCl 137 MCG/SPRAY 12:00:00 AM EST 1.0 {puff_in_each_nostril} active Azelastine HCl 137 MCG/SPRAY eCW1 ([facility]) Fluticasone Propionate 50 MCG/ACT Fluticasone Propionate 50 MCG/ACT 11/19/2020 12:00:00 AM EST 1.0 {spray_in_each_nostril} acti ve Fluticasone Propionate 50 MCG/ACT eCW1 ([facility]) Fluticasone Propionate 50 MCG/ACT Fluticasone Propionate 50 MCG/ACT 11/19/2020 12:00:00 AM EST 1.0 {spray_in_each_nostril} acti ve Fluticasone Propionate 50 MCG/ACT eCW1 ([facility]) Fluticasone Propionate 50 MCG/ACT Fluticasone Propionate 50 MCG/ACT 11/19/2020 12:00:00 AM EST 1.0 {spray_in_each_nostril} acti ve Fluticasone Propionate 50 MCG/ACT eCW1 ([facility]) Azelastine HCl 137 MCG/SPRAY Azelastine HCl 137 MCG/SPRAY 12:00:00 AM EST 1.0 {puff_in_each_nostril} active Azelastine HCl 137 MCG/SPRAY eCW1 ([facility]) Azelastine HCl 137 MCG/SPRAY Azelastine HCl 137 MCG/SPRAY 12:00:00 AM EST 1.0 {puff_in_each_nostril} active Azelastine HCl 137 MCG/SPRAY eCW1 ([facility]) 137 mcg (0.1 %) 11/19/2020 12:00:00 AM EST aerosol,spray 30 SPRAY ONE SPRAY IN ONE NOSTRIL TWICE A DAY SPRAY ONE SPRAY IN ONE NOSTRIL TWICE A DAY SOLD: 11/19/2020 [facility] Fluticasone propionate 0.05 MG/ACTUAT Metered Dose [place] 50 mcg/actuation FLUTICASONE PROPIONATE 11/19/2020 12:00:00 AM EST spray,suspension 16 SPRAY ONE SPRAY IN EACH NOSTRIL EVERY DAY SPRAY ONE SPRAY IN EACH NOSTRIL EVERY DAY SOLD: 08/16/2021 [facility] Azelastine HCl 137 MCG/SPRAY Azelastine HCl 137 MCG/SPRAY 12:00:00 AM EST 1.0 {puff_in_each_nostril} active Azelastine HCl 137 MCG/SPRAY eCW1 ([facility]) 50 mcg/actuation 11/19/2020 12:00:00 AM EST spray,suspension 16 SPRAY ONE SPRAY IN EACH NOSTRIL EVERY DAY SPRAY ONE SPRAY IN EACH NOSTRIL EVERY DAY SOLD: 11/19/2020 [facility] Azelastine HCl 137 MCG/SPRAY Azelastine HCl 137 MCG/SPRAY 12:00:00 AM EST 1.0 {puff_in_each_nostril} active Azelastine HCl 137 MCG/SPRAY eCW1 ([facility]) Azelastine HCl 137 MCG/SPRAY Azelastine HCl 137 MCG/SPRAY 12:00:00 AM EST 1.0 {puff_in_each_nostril} active Azelastine HCl 137 MCG/SPRAY eCW1 ([facility]) Azelastine HCl 137 MCG/SPRAY Azelastine HCl 137 MCG/SPRAY 12:00:00 AM EST 1.0 {puff_in_each_nostril} active Azelastine HCl 137 MCG/SPRAY eCW1 ([facility]) Azelastine HCl 137 MCG/SPRAY Azelastine HCl 137 MCG/SPRAY 12:00:00 AM EST 1.0 {puff_in_each_nostril} active Azelastine HCl 137 MCG/SPRAY eCW1 ([facility]) Azelastine HCl 137 MCG/SPRAY Azelastine HCl 137 MCG/SPRAY 12:00:00 AM EST 1.0 {puff_in_each_nostril} active Azelastine HCl 137 MCG/SPRAY eCW1 ([facility]) Fluticasone Propionate 50 MCG/ACT Fluticasone Propionate 50 MCG/ACT 11/19/2020 12:00:00 AM EST 1.0 {spray_in_each_nostril} acti ve Fluticasone Propionate 50 MCG/ACT eCW1 ([facility]) Fluticasone Propionate 50 MCG/ACT Fluticasone Propionate 50 MCG/ACT 11/19/2020 12:00:00 AM EST 1.0 {spray_in_each_nostril} acti ve Fluticasone Propionate 50 MCG/ACT eCW1 ([facility]) Fluticasone Propionate 50 MCG/ACT Fluticasone Propionate 50 MCG/ACT 11/19/2020 12:00:00 AM EST 1.0 {spray_in_each_nostril} acti ve Fluticasone Propionate 50 MCG/ACT eCW1 ([facility]) Azelastine HCl 137 MCG/SPRAY Azelastine HCl 137 MCG/SPRAY 12:00:00 AM EST 1.0 {puff_in_each_nostril} active Azelastine HCl 137 MCG/SPRAY eCW1 ([facility]) Fluticasone Propionate 50 MCG/ACT Fluticasone Propionate 50 MCG/ACT 11/19/2020 12:00:00 AM EST 1.0 {spray_in_each_nostril} acti ve Fluticasone Propionate 50 MCG/ACT eCW1 ([facility]) Fluticasone Propionate 50 MCG/ACT Fluticasone Propionate 50 MCG/ACT 11/19/2020 12:00:00 AM EST 1.0 {spray_in_each_nostril} acti ve Fluticasone Propionate 50 MCG/ACT eCW1 ([facility]) Fluticasone Propionate 50 MCG/ACT Fluticasone Propionate 50 MCG/ACT 11/19/2020 12:00:00 AM EST 1.0 {spray_in_each_nostril} acti ve Fluticasone Propionate 50 MCG/ACT eCW1 ([facility]) Insurance Providers Payer name Policy type / Coverage type Policy ID Covered democrat ID Covered democrat's relationship to gómez Policy Gómez Plan Information EMPIRE PLAN [facility] U [id number] Self [id number] [employer]BS EMPIRE 12 [id number] Spouse [id number] [facility] EMPIRE 31 [id number] Spouse [id number] [facility] EMPIRE 31 [id number] Spouse [id number] BC[employer] EMPIRE [id number] SPO [id number] BCBS EMPIRE [id number] SPO [id number] [facility] [id number] SPO [id number] [facility] [id number] SPO [id number] [employer] [id number] Spo [id number] [id number] MEDICARE [id number] Nguyen [id number] [employer]BS [id number] Spo [id number] [id number] [facility] [id number] [facility] MEDICARE DIVISION [id number] S [id number] MEDICARE - [place] [id number] S [id number] [facility] [id number] ANSI-Commercial [id number] ANSI-Medicare Part B [id number] ANSI-Medicare Part B [id number] ANSI-Commercial [id number] ANSI-Commercial [id number] ANSI-Medicare Part B [id number] ANSI-Commercial [id number] ANSI-Medicare Part B [id number] Medicare [place]/NGS Medicare Primary [id number] Self [id number] ANSI-Commercial [id number] ANSI-Medicare Part B [id number] ANSI-Commercial [id number] ANSI-Medicare Part B [id number] [facility] Part B [id number] Family Dependent [id number] Medicare [place] Medicare Primary [id number] [id number] Self [id number] [facility] Part B [id number] Family Dependent [id number] Medicare [place] Medicare Primary [id number] 2.0.1.328574.3.227.99.991.923303.0 Self [id number] [facility] Part B [id number].858000.0 Family Dependent [id number] Medicare [place] Medicare Primary [id number] [id number] Self [id number] [facility] B [id number] 2.16.840.1.150340.3.227.99.991.212285.0 Family Dependent [id number] Medicare [place] Medicare Primary [id number] 2.16.840.1.083017.3.227.99.991.253151.0 Self [id number] [facility] Part B [id number]9.991.444761.0 Family Dependent [id number] Medicare [place] Medicare Primary [id number] 2.16.840.1.844287.3.227.99.991.060812.0 Self [id number] ANSI-Medicare Part B [id number] [facility] [id number] ANSI-Medicare Part B [id number] ANSI-Commercial [id number] [facility]MP[facility] ([facility]) O [id number] P [id number] ANSI-Medicare Part B [id number] ANSI-Commercial [id number] ANSI-Medicare Part B [id number] ANSI-Commercial [id number] ANSI-Medicare Part B [id number] ANSI-Commercial [id number] ANSI-Commercial [id number] ANSI-Medicare Part B [id number] ANSI-Commercial [id number] ANSI-Commercial [id number] [facility] [id number] SPO [id number] [employer] [place] [id number] SP [id number] [facility] EMPIRE PLAN O [id number] S [id number] [employer]BS [place] DIV [id number] WI2 [id number] E[employer]IRE HEALTH CHOICE O [id number] S [id number] MEDICARE [id number] SP [id number] [employer] [id number] HU2 89 [id number] [facility] MEDICARE DIVISION [id number] S [id number] MEDICARE - [place] [id number] S [id number] BCBS E[place]IRE [id number] SPO [id number] [employer] E[place]IRE [place] DIV [id number] WI2 [id number] [facility] [id number] [id number] [employer] E[place]IRE [place] DIV [id number] WI2 [id number] [place] MEDICARE [place] O [id number] S [id number] [employer] O [id number] S [id number] MEDICARE C [id number] S [id number] Problems, Conditions, and Diagnoses Code Display Name Description Problem Type Effective Dates Data Source(s) M43.16 Spondylolisthesis, lumbar region SPONDYLOLISTHES IS, LUMBAR REGION Diagnosis 08/06/2021 01:30:00 PM [facility] M48.061 SPINAL STENOSIS, LUMBAR REGION WITHOUT N SPINAL STENOSIS, LUMBAR REGION WITHOUT N Diagnosis 08/06/2021 01:30:00 [facility] M[facility].36 Other intervertebral disc degeneration, lumbar region OTHER INTERVERTEBRAL DISC DEGENERATION, Diagnosis 08/06/2021 01:30:00 PM [facility] M54.16 Radiculopathy, lumbar region RADICULOPATHY, LUMBAR REG ION Diagnosis 08/06/2021 01:30:00 PM [facility] G57.93 Unspecified mononeuropathy of bilateral lower limbs UNSPECIFIED MONONEUROPATHY OF BILATERAL Diagnosis 08/06/2021 01:30:00 PM [facility] M79.605 Pain in left leg PAIN IN LEFT LEG Diagnosis 08/06/2021 01 :30:00 PM [facility] M79.604 Pain in right leg PAIN IN RIGHT LEG Diagnosis 08/06 01:30:00 PM [facility] M43.16 Spondylolisthesis, lumbar region Spondylolisthes is, lumbar region Diagnosis 05/14/2021 10:30:24 AM EDT [facility] M48.061 Spinal stenosis, lumbar region without n eurogenic claudication Spinal stenosis, lumbar region without n Diagnosis 05/14/2021 10:30:24 AM EDT [facility] M51.36 Other intervertebral disc degeneration, lumbar region Other intervertebral disc degeneration, Diagnosis 05/14/2021 10:30:24 AM EDT [facility] M54.16 Radiculopathy, lumbar region Radiculopathy, lumbar reg ion Diagnosis 05/14/2021 10:30:24 AM EDT [facility] G57.93 Unspecified mononeuropathy of bilateral lower limbs Unspecified mononeuropathy of bilateral Diagnosis 05/14/2021 10:30:24 AM EDT [facility] M79.605 Pain in left leg Pain in left leg Diagnosis 05/14/2021 10 :30:24 AM EDT [facility] M79.604 Pain in right leg Pain in right leg Diagnosis 05/14 10:30:24 AM EDT [facility] M17.11 [id number] Primary osteoarthritis of right knee P roblem 05/27/2021 12:00:00 AM EDT eCW1 ([facility]) G62.9 [id number] Neuropathy Problem 05/27/2021 12:00:00 AM ED T eCW1 ([facility]) 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 [id number] 05/14/2021 12:00:00 A M EDT [facility] M48.061 Spinal stenosis of lumbar region without neurogenic claudication Spinal stenosis of lumbar region without neurogenic claudication [id number] 05/14/2021 12:00:00 AM EDT [facility] M51.36 DDD (degenerative disc disease), lumbar DDD (degenerative disc disease), lumbar [id number] 05/14/2021 12:00:00 AM EDT [facility] M54.16 Lumbar radiculopathy Lumbar radiculopathy [id number] 05/14/2021 12:00:00 AM EDT [facility] G57.93 Neuropathic pain of both feet Neuropathic pain of both feet [id number] 05/14/2021 12:00:00 AM EDT [facility] M79.604 Pain in both lower extremities Pain in both lower extr emities [id number] 05/14/2021 12:00:00 AM EDT [facility] Z85.828 [id number] Hx of nonmelanoma skin cancer Problem 04/17/2021 12:00:00 AM EDT eCW1 ([facility]) Surgeries/Procedures Procedure Description Date Indications Data Source(s) OFFICE OUTPATIENT NEW 45 MINUTES 06/16/2021 12:00:00 A M EDT [facility]ONE ([facility]) Med: Derm 1% Lidocaine with Epinephrine Injection Intr adermally to marked areas 04/17/2021 12:00:00 AM EDT eCW1 ([facility]) PNEUMOCOCCAL POLYSAC VACCINE 23-V 2 />YR SUBQ/IM 11/19 12:00:00 AM EST eCW1 ([facility]) Results ID Date Data Source [id number] 08/25/2021 12:00:00 AM EDT [facility] Name Value Range Interpretation Code Description Data Marissa rce(s) Supporting Document(s) SARS-CoV2 Rapid Antigen Negative [facility] This lab was ordered by [facility] and reported by [facility]. Procedure Social History Code Duration Value Status Description Data Source(s ) Smoking 05/27/2021 12:00:00 AM EDT Former Smoker completed Former Smoker eCW1 ([facility]) Smoking 05/27/2021 12:00:00 AM EDT Former Smoker completed Former Smoker eCW1 ([facility]) Alcohol intake 05/14/2021 12:00:00 AM EDT Current drinker of al cohol (finding) completed Current drinker of alcohol (finding) [facility] Tobacco use and exposure 05/14/2021 12:00:00 AM EDT Never used co mpleted Never used [facility] Smoking 05/14/2021 12:00:00 AM EDT Former smoker completed Former smoker [facility] Smoking 04/17/2021 12:00:00 AM EDT Former Smoker completed Former Smoker eCW1 ([facility]) Smoking 11/19/2020 12:00:00 AM EST Former Smoker completed Former Smoker eCW1 ([facility]) Smoking 11/19/2020 12:00:00 AM EST Former Smoker completed Former Smoker eCW1 ([facility]) Smoking 11/19/2020 12:00:00 AM EST Former Smoker completed Former Smoker eCW1 ([facility]) Smoking 11/19/2020 12:00:00 AM EST Former Smoker completed Former Smoker eCW1 ([facility]) Smoking 11/19/2020 12:00:00 AM EST Former Smoker completed Former Smoker eCW1 ([facility]) Smoking 11/19/2020 12:00:00 AM EST Former Smoker completed Former Smoker eCW1 ([facility]) Smoking 11/19/2020 12:00:00 AM EST Former Smoker completed Former Smoker eCW1 ([facility]) Smoking 11/19/2020 12:00:00 AM EST Former Smoker completed Former Smoker eCW1 ([facility]) Vital Signs ID Date Data Source UNK Name Value Range Interpretation Code Description Data Source(s) Systolic blood pressure 135 mm[Hg] 135 mm[Hg] M SOSA ([facility], ) rt 140/76 Diastolic blood pressure 79 mm[Hg] 79 mm[Hg] BOONE ([facility], ) rt 140/76 Heart rate 80 /min 80 /min BOONE ([facility]) Body temperature 98.9 [degF] 98.9 [degF] [facility] ([facility]) Body height 71 [in_i] 71 [in_i] [facility] ([facility]) 5'11" Body weight 263.12 [lb_av] 263.12 [lb_av] MEDEN T ([facility]) Body mass index (BMI) [Ratio] 36.7 kg/m2 36.7 k g/m2 [facility] ([facility]) [place] body weight 172 [lb_av] 172 [lb_av] [facility] Body weight 119.353 kg 119.353 kg [facility] ([facility]) Body surface area Derived from formula 2.37 m2 2.37 m2 [facility] ([facility]) Body weight 259.4 [lb_av] 259.4 [lb_av] W1 ([facility]) Body height 71 [in_i] 71 [in_i] eCW1 ([facility]) Body mass index (BMI) [Ratio] 36.18 kg/m2 36.18 kg/m2 W1 ([facility]) Heart rate 93 /min 93 /min W1 ([facility]) Respiratory rate 18 /min 18 /min W1 ([facility]) Body temperature 98.0 [degF] 98.0 [degF] eCW1 ( [facility]) Systolic blood pressure 120 mm[Hg] 120 mm[Hg] e CW1 ([facility]) Diastolic blood pressure 74 mm[Hg] 74 mm[Hg] eCW1 ([facility]) Body height 180.3 cm 180.3 cm [facility] Body weight 117.028 kg 117.028 kg [facility] Body temperature 36.28 Diane 36.28 Diane [facility] Body mass index (BMI) [Ratio] 35.98 kg/m2 35.98 kg/m2 [facility] Oxygen saturation in Arterial blood by Pulse oximetry 97 % 97 % [facility] Heart rate 76 /min 76 /min [facility] Body weight 262 [lb_av] 262 [lb_av] eCW1 ([facility]) Body height 71 [in_i] 71 [in_i] eCW1 ([facility]) Body mass index (BMI) [Ratio] 36.54 kg/m2 36.54 kg/m2 eCW1 ([facility]) Body weight 259.8 [lb_av] 259.8 [lb_av] eCW1 ([facility]) Body height 71 [in_i] 71 [in_i] eCW1 ([facility]) Body mass index (BMI) [Ratio] 36.23 kg/m2 36.23 kg/m2 eCW1 ([facility]) Heart rate 84 /min 84 /min eCW1 ([facility]) Respiratory rate 18 /min 18 /min eCW1 ([facility]) Body temperature 97.8 [degF] 97.8 [degF] eCW1 ( [facility]) Systolic blood pressure 113 mm[Hg] 113 mm[Hg] e CW1 ([facility]) Diastolic blood pressure 69 mm[Hg] 69 mm[Hg] eCW1 ([facility]) Patient Treatment Plan of Care Planned Activity Planned Date Details Description Data Source (s) Simvastatin 10 MG Oral Tablet 05/01/2021 12:00:00 AM EDT [facility] Losartan Potassium 25 MG Oral Tablet 04/15/2021 12:00:00 AM EDT [facility] Allopurinol 100 MG Oral Tablet 04/15/2021 12:00:00 AM EDT [facility] Fluticasone Propionate 50 MCG/ACT 11/19/2020 12:00:00 AM EST eCW1 ([facility]) Azelastine HCl 137 MCG/SPRAY 11/19/2020 12:00:00 AM EST eCW1 ([facility]) Fluticasone Propionate 50 MCG/ACT 11/19/2020 12:00:00 AM EST eCW1 ([facility]) Azelastine HCl 137 MCG/SPRAY 11/19/2020 12:00:00 AM EST eCW1 ([facility]) Fluticasone Propionate 50 MCG/ACT 11/19/2020 12:00:00 AM EST eCW1 ([facility]) Azelastine HCl 137 MCG/SPRAY 11/19/2020 12:00:00 AM EST eCW1 ([facility]) Fluticasone Propionate 50 MCG/ACT 11/19/2020 12:00:00 AM EST eCW1 ([facility]) Azelastine HCl 137 MCG/SPRAY 11/19/2020 12:00:00 AM EST eCW1 ([facility]) Fluticasone Propionate 50 MCG/ACT 11/19/2020 12:00:00 AM EST eCW1 ([facility]) Azelastine HCl 137 MCG/SPRAY 11/19/2020 12:00:00 AM EST eCW1 ([facility]) Fluticasone Propionate 50 MCG/ACT 11/19/2020 12:00:00 AM EST eCW1 ([facility]) Azelastine HCl 137 MCG/SPRAY 11/19/2020 12:00:00 AM EST eCW1 ([facility]) Fluticasone Propionate 50 MCG/ACT 11/19/2020 12:00:00 AM EST eCW1 ([facility]) Azelastine HCl 137 MCG/SPRAY 11/19/2020 12:00:00 AM EST eCW1 ([facility]) Fluticasone Propionate 50 MCG/ACT 11/19/2020 12:00:00 AM EST eCW1 ([facility]) Azelastine HCl 137 MCG/SPRAY 11/19/2020 12:00:00 AM EST eCW1 ([facility])
--- OUTSIDE RECORDS SUMMARY | 2021-09-06 18:38 | CCD | Continuity of Care Document ---
Author Author Louis ARIZMENDI MD Organization Unknown Address [address] [place] [address], [address] [place] [address] Phone [phone] Care Team Providers Care Chiropractic Care Name Role Phone Central Scheduling AUTM [phone] Cedric Portillo AUTM [phone] Osorio Dickerson D.O. AUTM [phone] Problems Active Problems Provider Date Essential hypertension [...] Tablets Take 1 Tablet Twice A Day ([employer]abetes [employer] Specialist On An Empty Stomach And AT [...] lb BMI (Body Mass Index) 36.7 kg/m2 [place] Body Weight 172 lb Weight 119.353 kg BSA (Body Surface Area) 2.37 m2 03/28/2020 10:59am BP Systolic 134 mmHg BP Diastolic 68 mmHg Results Description No Information Available Procedures Date Code Description Status 06/16/2021 57576 Office/Outpatient New Moderate M DM 45-59 Minutes Completed Medical Devices Description No Information Available Encounters Type Date Location Provider Dx Diagnosis Office Visit 06/16/2021 2:00p [facility] Clive Arizmendi MD I73.00 Raynaud's syndrome without gangrene Assessments Date Code Description Provider 06/16/2021 I73.00 Raynaud's syndrome without gangr bj Clive Arizmendi MD Plan of Treatment No Information Available Functional Status Description No Information Available Mental Status Description No Information Available Referrals Refer to Reason for Referral Status Appt Clive Arizmendi MD BILATERAL LOWER EXTREMITY PAIN Scheduled 06/16/[address] [address] [phone]
--- OUTSIDE RECORDS SUMMARY | 2021-09-06 18:38 | CCD | Continuity of Care Document ---
Author Author Louis HARGROVE Organization Unknown Address [address] [place] [address] Phone [phone] Care Team Providers Care Employment Evaluator/Case Manager Name Role Phone [facility] Dickerson [facility] [phone] Problems Description No Information Available Social History [...]
--- OUTSIDE RECORDS SUMMARY | 2021-09-06 18:38 | CCD | Continuity of Care Document ---
Author Author [facility] Address [address] [place] [address] Phone Care Team Providers Care Director Hris Name Role Phone DRE, @ [facility] PCP Health Concerns Health Concerns may be documented in an alternate section. Allergies, Adverse Reactions, Alerts Allergen Type Severity Reaction Last Updated Verified Status MDX - PCN (penicillin) Allergy Moderate HIVES July 08, 2013 Yes Active Social History Assigned Sex Male Problems No problem information available. Medications Medication Status Dose Units Route Directions Qty Days Start Date End Date Instructions Allopurinol ([id number] MG) 300 MG TABLET Active 300 MG PO Daily Aspirin (GSSRTIO34 M1) 81 MG CTB Active 81 MG PO Daily Losartan Potassium (LOSARTAN NQNPTN22 MG) 50 MG TABLET Active 50 MG PO Daily Immunizations No Immunization Information Available Medical Equipment No Medical Equipment Information available Procedures No procedure information available. Relevant Diagnostic Tests and/or Laboratory Data No known relevant diagnostic tests and/or laboratory data. Vital Signs No vital signs result information available. Insurance Providers Guarantor HARLAN DOZIER Address [address] [id number] Contact Info. Home Phone: Payer Policy Id Coverage Id Subscriber's Name Subscriber Id Effective Date Expiration Date MEDICARE - [place] [id number] HARLAN DOZIER [employer]ISION [id number] HARLAN DOZIER [facility] [id number] GLENYS DOZIER 2017 [facility] [id number] GLENYS DOZIER 2016 Encounters Encounter Location(s) Ar rival/Admit Date Discharge/Depart Date Provider(s) Registered [facility] August 15, 2021 7:00am KENYA CORADO Discharged [facility] August 06, 2021 9:30am August 13, 2021 9:55am RAUL CORADO Functional Status No Functional Status information available Mental Status No Mental Status Information Available Assessments No Assessments Information Available Goals Goals may be documented in an alternate section.
--- OUTSIDE RECORDS SUMMARY | 2021-09-06 18:38 | CCD | Continuity of Care Document ---
Author Author Louis ARIZMENDI MD Organization Unknown Address [address] [place] [address], [address] [place] [address] Phone [phone] Care Team Providers Care Customer Retention Specialist Name Role Phone Central Scheduling AUTM [phone] Cedric Portillo AUTM [phone] Osorio Dickerson D.O. 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
[2021-09-06] MEDS ORDERED: FAMO10TA50 PO (18:53)
[2021-09-06] MEDS ORDERED: LIDOCAINE W/EPINEPHRINE 1% 20ML VIAL SC ONE (20:50)
[2021-09-06] MEDS ORDERED: CLINDAMYCIN 150MG CAPSULE PO ONE (21:20)
[2021-09-06] MEDS ORDERED: BACITRACIN OINTMENT 30GM TUBE TOP STA (21:46)
[2021-09-06] MEDS ORDERED: POLYSPORIN TOPICAL OINTMENT 15GM TOP ONE (21:50)
[2021-09-06] MEDS ORDERED: CLEO300C2 PO (22:03)
--- OUTSIDE RECORDS SUMMARY | 2021-09-06 22:11 | CCD ---
Author Author [facility] Organization [facility] Address Unknown Phone Unavailable Care Team Providers Care Welfare Specialist Name Role Phone David ARIZMENDI MD Unavailable [...] D PAULA DO Unavailable Unavailable HUIZENGA, D PAUAL DO Unavailable Unavailable HUIZENGA, D PAULA DO [...] is protected by Article 27-F of the [facility] Public Health law. If you continue you may have access to information: Regarding HIV / AIDS; Provided by facilities licensed or operated by the [facility] Office of Mental Health; or Provided by the [facility] Office for People With Developmental Disabilities. If such information is present, then the following [facility] mandated warning applies: This information has been [...] law may result in a fine or assisted sentence or both. A general authorization for the release of medical or other information is NOT sufficient authorization for further disc losure. Family History Family Member Name Family Member Gender Family Member Status Date o f Status Description Data Source(s) Unknown Unknown Problem MEDENT ([facility] ) Encounters Encounter Providers Location Date Indications Data Source(s ) Outpatient Attender: Cedricandrea SALTER 08/15/2021 01:55: 00 PM EDT [facility] Outpatient Attender: Cedric ROSSttender: MONSERRAT INFO NEEDED 08/06/2021 08:56:00 AM EDT - 08/13/2021 01:55:00 PM EDT [facility] pital Patient discharged. Outpatient Attender: GORGE Oswald/Vin/Abdi/Milka 06/16/2021 02:00:00 PM EDT MEDENT ([facility]) [place] [address] [address] 06/16/2021 12:00:00 AM EDT eCW1 ([facility]) [place] [address] [facility] [place] [address] 05/27/2021 12:00:00 AM EDT eCW1 ([facility]) Outpatient Attender: Cedric Scotter: Leny ANGUIANO DO [id number] 05/14/2021 12:00:00 AM EDT - 05/14/2021 11:57:35 AM EDT [facility] [place]patient [address] [address] 04/17/2021 12:00:00 AM EDT eCW1 ([facility]) [place] [address] [address] 03/05/2021 12:00:00 AM EDT eCW1 ([facility]) [place] [address] [address] 03/05/2021 12:00:00 AM EDT eCW1 ([facility]) Unknown [address] [facility] [place] [address] 03/03/2021 12:00:00 AM EDT eCW1 ([facility]) Unknown [address] [facility] [place] [address] 02/17/2021 12:00:00 AM EDT eCW1 ([facility]) [place] [address] [address] 02/06/2021 12:00:00 AM EDT eCW1 ([facility]) [place] [address] [address] 01/06/2021 12:00:00 AM EST eCW1 ([facility]) [place] [address] [address] 12/02/2020 12:00:00 AM EST eCW1 ([facility]) [place]patient [address] [address] 11/19/2020 12:00:00 AM EST eCW1 ([facility]) [place] [address] [address] 11/12/2020 12:00:00 AM EST eCW1 ([facility]) [facility] [address] [place] [address] 10/07/2020 12:00:00 AM EST eCW1 ([facility]) [place] [address] [address] 09/11/2020 12:00:00 AM EDT eCW1 ([facility]) Outpatient Attender: WADE ERICKSON [facility] EMERGENCY ROOM-LAB 0 04/04/2018 04:16:00 PM EDT - 04/04/2018 04:16:00 PM [facility] Immunizations Vaccine Date Status Description Data Source(s) COVID-19 VACCINE Pfizer 08/26/2021 12:00:00 AM EDT completed [facility] Vaccine Series Complete: YESThis Data wa s Submitted to [facility]. COVID-19 VACC, MRNA(PFIZER)/PF 08/26/2021 12:00:00 AM EDT completed [facility] COVID-19 VACCINE Pfizer 01/26/2021 12:00:00 AM EST completed [facility] Vaccine Series Complete: YESThis Data wa s Submitted to [facility] [employer]. COVID-19 VACCINE Pfizer 01/05/2021 12:00:00 AM EST completed [facility] Vaccine Series Complete: NOThis Data was Submitted to [facility] [employer]. pneumococcal polysaccharide PPV23 11/19/2020 11:12:00 AM EST comple osvaldo eCW1 ([facility]) pneumococcal polysaccharide PPV23 11/19/2020 11:12:00 AM EST comple osvaldo eCW1 ([facility]) pneumococcal polysaccharide PPV23 11/19/2020 11:12:00 AM EST comple osvaldo eCW1 ([facility]) pneumococcal polysaccharide PPV23 11/19/2020 11:12:00 AM EST comple osvaldo eCW1 ([facility]) pneumococcal polysaccharide PPV23 11/19/2020 11:12:00 AM EST comple osvaldo eCW1 ([facility]) pneumococcal polysaccharide PPV23 11/19/2020 11:12:00 AM EST comple osvaldo eCW1 ([facility]) pneumococcal polysaccharide PPV23 11/19/2020 11:12:00 AM EST comple osvaldo eCW1 ([facility]) pneumococcal polysaccharide PPV23 11/19/2020 11:12:00 AM EST comple osvaldo eCW1 ([facility]) pneumococcal polysaccharide PPV23 11/19/2020 11:12:00 AM EST comple osvaldo eCW1 ([facility]) pneumococcal polysaccharide PPV23 11/19/2020 11:12:00 AM EST comple osvaldo eCW1 ([facility]) pneumococcal polysaccharide PPV23 11/19/2020 11:12:00 AM EST comple osvaldo eCW1 ([facility]) IIV3. This is one of two codes replacing CVX 15, which is being retired. 11/19/2020 10:57:00 AM EST completed eCW1 ([facility]) IIV3. This is one of two codes replacing CVX 15, which is being retired. 11/19/2020 10:57:00 AM EST completed eCW1 ([facility]) IIV3. This is one of two codes replacing CVX 15, which is being retired. 11/19/2020 10:57:00 AM EST completed eCW1 ([facility]) IIV3. This is one of two codes replacing CVX 15, which is being retired. 11/19/2020 10:57:00 AM EST completed eCW1 ([facility]) IIV3. This is one of two codes replacing CVX 15, which is being retired. 11/19/2020 10:57:00 AM EST completed eCW1 ([facility]) IIV3. This is one of two codes replacing CVX 15, which is being retired. 11/19/2020 10:57:00 AM EST completed eCW1 ([facility]) IIV3. This is one of two codes replacing CVX 15, which is being retired. 11/19/2020 10:57:00 AM EST completed eCW1 ([facility]) IIV3. This is one of two codes replacing CVX 15, which is being retired. 11/19/2020 10:57:00 AM EST completed eCW1 ([facility]) IIV3. This is one of two codes replacing CVX 15, which is being retired. 11/19/2020 10:57:00 AM EST completed eCW1 ([facility]) IIV3. This is one of two codes replacing CVX 15, which is being retired. 11/19/2020 10:57:00 AM EST completed eCW1 ([facility]) IIV3. This is one of two codes replacing CVX 15, which is being retired. 11/19/2020 10:57:00 AM EST completed eCW1 ([facility]) Medications Medication Brand Name Start Date Product Form Dose Route Admi nistrative Instructions Pharmacy Instructions Status Indications Reaction Description Data Source(s) Simvastatin 10 MG Oral Tablet simvastatin (ZOCOR) 10 M G tablet simvastatin (ZOCOR) 10 MG tablet 05/01/2021 12:00:00 AM EDT ac tive [facility] Losartan Potassium 25 MG Oral Tablet losartan (COZAAR) 25 MG tablet losartan (COZAAR) 25 MG tablet 04/15/2021 12:00:00 AM EDT a ctive [facility] Allopurinol 100 MG Oral Tablet allopurinol (ZYLOPRIM) 100 MG tablet allopurinol (ZYLOPRIM) 100 MG tablet 04/15/2021 12:00:00 AM EDT active [facility] 4 gram 03/05/2021 12:00:00 AM EDT powder [...] acti ve Fluticasone Propionate 50 MCG/ACT eCW1 ([facility]) Azelastine HCl 137 MCG/SPRAY Azelastine HCl 137 MCG/SPRAY 12:00:00 AM EST 1.0 {puff_in_each_nostril} active Azelastine HCl 137 MCG/SPRAY eCW1 ([facility]) Fluticasone Propionate 50 MCG/ACT Fluticasone Propionate 50 MCG/ACT 11/19/2020 12:00:00 AM EST 1.0 {spray_in_each_nostril} acti ve Fluticasone Propionate 50 MCG/ACT eCW1 ([facility]) Azelastine HCl 137 MCG/SPRAY Azelastine HCl 137 MCG/SPRAY 12:00:00 AM EST 1.0 {puff_in_each_nostril} active Azelastine HCl 137 MCG/SPRAY eCW1 ([facility]) Fluticasone Propionate 50 MCG/ACT Fluticasone Propionate 50 MCG/ACT 11/19/2020 12:00:00 AM EST 1.0 {spray_in_each_nostril} acti ve Fluticasone Propionate 50 MCG/ACT eCW1 ([facility]) Fluticasone Propionate 50 MCG/ACT Fluticasone Propionate 50 MCG/ACT 11/19/2020 12:00:00 AM EST 1.0 {spray_in_each_nostril} acti ve Fluticasone Propionate 50 MCG/ACT eCW1 ([facility]) Fluticasone Propionate 50 MCG/ACT Fluticasone Propionate 50 MCG/ACT 11/19/2020 12:00:00 AM EST 1.0 {spray_in_each_nostril} acti ve Fluticasone Propionate 50 MCG/ACT eCW1 ([facility]) Azelastine HCl 137 MCG/SPRAY Azelastine HCl 137 MCG/SPRAY 12:00:00 AM EST 1.0 {puff_in_each_nostril} active Azelastine HCl 137 MCG/SPRAY eCW1 ([facility]) Azelastine HCl 137 MCG/SPRAY Azelastine HCl 137 MCG/SPRAY 12:00:00 AM EST 1.0 {puff_in_each_nostril} active Azelastine HCl 137 MCG/SPRAY eCW1 ([facility]) 137 mcg (0.1 %) 11/19/2020 12:00:00 AM EST aerosol,spray 30 SPRAY ONE SPRAY IN ONE NOSTRIL TWICE A DAY SPRAY ONE SPRAY IN ONE NOSTRIL TWICE A DAY SOLD: 11/19/2020 [facility] Fluticasone propionate 0.05 MG/ACTUAT Metered Dose [place] 50 mcg/actuation FLUTICASONE PROPIONATE 11/19/2020 12:00:00 AM EST spray,suspension 16 SPRAY ONE SPRAY IN EACH NOSTRIL EVERY DAY SPRAY ONE SPRAY IN EACH NOSTRIL EVERY DAY SOLD: 08/16/2021 [facility] Azelastine HCl 137 MCG/SPRAY Azelastine HCl 137 MCG/SPRAY 12:00:00 AM EST 1.0 {puff_in_each_nostril} active Azelastine HCl 137 MCG/SPRAY eCW1 ([facility]) 50 mcg/actuation 11/19/2020 12:00:00 AM EST spray,suspension 16 SPRAY ONE SPRAY IN EACH NOSTRIL EVERY DAY SPRAY ONE SPRAY IN EACH NOSTRIL EVERY DAY SOLD: 11/19/2020 [facility] Azelastine HCl 137 MCG/SPRAY Azelastine HCl 137 MCG/SPRAY 12:00:00 AM EST 1.0 {puff_in_each_nostril} active Azelastine HCl 137 MCG/SPRAY eCW1 ([facility]) Azelastine HCl 137 MCG/SPRAY Azelastine HCl 137 MCG/SPRAY 12:00:00 AM EST 1.0 {puff_in_each_nostril} active Azelastine HCl 137 MCG/SPRAY eCW1 ([facility]) Azelastine HCl 137 MCG/SPRAY Azelastine HCl 137 MCG/SPRAY 12:00:00 AM EST 1.0 {puff_in_each_nostril} active Azelastine HCl 137 MCG/SPRAY eCW1 ([facility]) Azelastine HCl 137 MCG/SPRAY Azelastine HCl 137 MCG/SPRAY 12:00:00 AM EST 1.0 {puff_in_each_nostril} active Azelastine HCl 137 MCG/SPRAY eCW1 ([facility]) Azelastine HCl 137 MCG/SPRAY Azelastine HCl 137 MCG/SPRAY 12:00:00 AM EST 1.0 {puff_in_each_nostril} active Azelastine HCl 137 MCG/SPRAY eCW1 ([facility]) Fluticasone Propionate 50 MCG/ACT Fluticasone Propionate 50 MCG/ACT 11/19/2020 12:00:00 AM EST 1.0 {spray_in_each_nostril} acti ve Fluticasone Propionate 50 MCG/ACT eCW1 ([facility]) Fluticasone Propionate 50 MCG/ACT Fluticasone Propionate 50 MCG/ACT 11/19/2020 12:00:00 AM EST 1.0 {spray_in_each_nostril} acti ve Fluticasone Propionate 50 MCG/ACT eCW1 ([facility]) Fluticasone Propionate 50 MCG/ACT Fluticasone Propionate 50 MCG/ACT 11/19/2020 12:00:00 AM EST 1.0 {spray_in_each_nostril} acti ve Fluticasone Propionate 50 MCG/ACT eCW1 ([facility]) Azelastine HCl 137 MCG/SPRAY Azelastine HCl 137 MCG/SPRAY 12:00:00 AM EST 1.0 {puff_in_each_nostril} active Azelastine HCl 137 MCG/SPRAY eCW1 ([facility]) Fluticasone Propionate 50 MCG/ACT Fluticasone Propionate 50 MCG/ACT 11/19/2020 12:00:00 AM EST 1.0 {spray_in_each_nostril} acti ve Fluticasone Propionate 50 MCG/ACT eCW1 ([facility]) Fluticasone Propionate 50 MCG/ACT Fluticasone Propionate 50 MCG/ACT 11/19/2020 12:00:00 AM EST 1.0 {spray_in_each_nostril} acti ve Fluticasone Propionate 50 MCG/ACT eCW1 ([facility]) Fluticasone Propionate 50 MCG/ACT Fluticasone Propionate 50 MCG/ACT 11/19/2020 12:00:00 AM EST 1.0 {spray_in_each_nostril} acti ve Fluticasone Propionate 50 MCG/ACT eCW1 ([facility]) Insurance Providers Payer name Policy type / Coverage type Policy ID Covered republican ID Covered republican's relationship to gómez Policy Gómez Plan Information EMPIRE PLAN [facility] [id number] Self [id number] BCBS EMPIRE 12 [id number] Spouse [id number] [facility] EMPIRE [id number]ouse [id number] [facility] EMPIRE 31 [id number] Spouse [id number] BCBS EMPIRE [id number] SPO [id number] BCBS E[employer]IRE [id number] SPO [id number] [facility] [id number] SPO [id number] [facility] [id number] SPO [id number] [employer] BCBS [id number] Spo [id number] [id number] MEDICARE [id number] Nguyen [id number] EXCELLUS BCBS [id number] Spo [id number] [id number] EXCELLUS [id number] [id number] [facility] MEDICARE DIVISION [id number] S [id number] [place]IC[place] [id number] S [id number] [facility] [id number] [id number] ANSI-Commercial [id number] ANSI-Medicare Part B [id number] ANSI-Medicare Part B [id number] ANSI-Commercial [id number] ANSI-Commercial [id number] ANSI-Medicare Part B [id number] ANSI-Commercial [id number] ANSI-Medicare Part B [id number] [place] Primary [id number] Self [id number] ANSI-Commercial [id number] ANSI-Medicare Part B [id number] ANSI-Commercial [id number] ANSI-Medicare Part B [id number] [facility] Part B [id number] Family Dependent [id number] Medicare [place] Medicare Primary [id number] [id number] Self [id number] [facility] Part B [id number] Family Dependent [id number] Medicare [place] Medicare Primary [id number] Self [id number] [facility] Part B [id number] Family Dependent [id number] Medicare [place] Medicare Primary [id number] Self [id number] [facility] B [id number] Family Dependent [id number] Medicare [place] Medicare Primary [id number] Self [id number] [facility] Part B [id number] Family Dependent [id number] Medicare [place] Medicare Primary [id number] Self [id number] ANSI-Medicare Part B [id number] [facility] [id number] ANSI-Medicare Part B [id number] ANSI-Commercial [id number] EMPIR ([facility]) O [id number] P [id number] ANSI-Medicare Part B [id number] ANSI-Commercial [id number] ANSI-Medicare Part B [id number] ANSI-Commercial [id number] ANSI-Medicare Part B [id number] ANSI-Commercial [id number] ANSI-Commercial [id number] ANSI-Medicare Part B [id number] ANSI-Commercial [id number] ANSI-Commercial [id number] [facility] [id number] SPO [id number] BCBS EMPIRE [place] DIV [id number] SP [id number] [facility] EMPIRE PLAN O [id number] S [id number] BCBS EMPIRE [place] DIV [id number] WI2 [id number] [employer] O [id number] S [id number] MEDICARE [id number] SP [id number] [facility] [id number] HU2 [id number] [facility] MEDICARE DIVISION [id number] S [id number] MEDICARE - [place] [id number] S [id number] BCBS EMPIRE [id number] SPO [id number] BCBS EMPIRE [place] [id number] [id number] [facility] [id number] HU2 [id number] BCBS EMPIRE [place] [id number] WI2 [id number] [place] MEDICARE [place] O [id number] S [id number] [facility] O [id number] S [id number] MEDICARE C [id number] S [id number] Problems, Conditions, and Diagnoses Code Display Name Description Problem Type Effective Dates Data Source(s) M43.16 Spondylolisthesis, lumbar region SPONDYLOLISTHES IS, LUMBAR REGION Diagnosis 08/06/2021 01:30:00 PM [facility] M48.061 SPINAL STENOSIS, LUMBAR REGION WITHOUT N SPINAL STENOSIS, LUMBAR REGION WITHOUT N Diagnosis 08/06[facility]2021 [facility]30[facility]36 Other intervertebral disc degeneration, lumbar region OTHER INTERVERTEBRAL DISC DEGENERATION, Diagnosis 08/06/2021 01:30:00 PM [facility] M54.16 Radiculopathy, lumbar region RADICULOPATHY, LUMBAR REG ION Diagnosis 08/06/2021 01:30:00 PM [facility] G57.93 Unspecified mononeuropathy of bilateral lower limbs UNSPECIFIED MONONEUROPATHY OF BILATERAL Diagnosis 08/06/2021 01:30:00 PM [facility] M79.605 Pain in left leg PAIN IN LEFT LEG Diagnosis 08/06/2021 01 :30:00 PM [facility] M79.604 Pain in right leg PAIN IN RIGHT LEG Diagnosis 08/06 01:30:00 PM [facility] M43.16 Spondylolisthesis, lumbar region Spondylolisthes is, lumbar region Diagnosis 05/14/2021 10:30:24 AM EDT [facility] M48.061 Spinal stenosis, lumbar region without n eurogenic claudication Spinal stenosis, lumbar region without n Diagnosis 05/14/2021 10:30:24 AM EDT [facility] M51.36 Other intervertebral disc degeneration, lumbar region Other intervertebral disc degeneration, Diagnosis 05/14/2021 10:30:24 AM EDT [facility] M54.16 Radiculopathy, lumbar region Radiculopathy, lumbar reg ion Diagnosis 05/14/2021 10:30:24 AM EDT [facility] G57.93 Unspecified mononeuropathy of bilateral lower limbs Unspecified mononeuropathy of bilateral Diagnosis 05/14/2021 10:30:24 AM EDT [facility] M79.605 Pain in left leg Pain in left leg Diagnosis 05/14/2021 10 :30:24 AM EDT [facility] M79.604 Pain in right leg Pain in right leg Diagnosis 05/14 10:30:24 AM EDT [facility] M17.11 [id number] Primary osteoarthritis of right knee P roblem 05/27/2021 12:00:00 AM EDT eCW1 ([facility]) G62.9 [id number] Neuropathy Problem 05/27/2021 12:00:00 AM ED T eCW1 ([facility]) 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 [id number] 05/14/2021 12:00:00 A M EDT [facility] M48.061 Spinal stenosis of lumbar region without neurogenic claudication Spinal stenosis of lumbar region without neurogenic claudication [id number] 05/14/2021 12:00:00 AM EDT [facility] M51.36 DDD (degenerative disc disease), lumbar DDD (degenerative disc disease), lumbar [id number] 05/14/2021 12:00:00 AM EDT [facility] M54.16 Lumbar radiculopathy Lumbar radiculopathy [id number] 05/14/2021 12:00:00 AM EDT [facility] G57.93 Neuropathic pain of both feet Neuropathic pain of both feet [id number] 05/14/2021 12:00:00 AM EDT [facility] M79.604 Pain in both lower extremities Pain in both lower extr emities [id number] 05/14/2021 12:00:00 AM EDT [facility] Z85.828 [id number] Hx of nonmelanoma skin cancer Problem 04/17/2021 12:00:00 AM EDT eCW1 ([facility]) Surgeries/Procedures Procedure Description Date Indications Data Source(s) OFFICE OUTPATIENT NEW 45 MINUTES 06/16/2021 12:00:00 A M EDT [facility] ([facility]) Med: Derm 1% Lidocaine with Epinephrine Injection Intr adermally to marked areas 04/17/2021 12:00:00 AM EDT eCW1 ([facility]) PNEUMOCOCCAL POLYSAC VACCINE 23-V 2 />YR SUBQ/IM 11/19 12:00:00 AM EST eCW1 ([facility]) Results ID Date Data Source [id number] 08/25/2021 12:00:00 AM EDT [facility] Name Value Range Interpretation Code Description Data Marissa rce(s) Supporting Document(s) SARS-CoV2 Rapid Antigen Negative [facility] This lab was ordered by [facility] and reported by [facility]. Procedure Social History Code Duration Value Status Description Data Source(s ) Smoking 05/27/2021 12:00:00 AM EDT Former Smoker completed Former Smoker eCW1 ([facility]) Smoking 05/27/2021 12:00:00 AM EDT Former Smoker completed Former Smoker eCW1 ([facility]) Alcohol intake 05/14/2021 12:00:00 AM EDT Current drinker of al cohol (finding) completed Current drinker of alcohol (finding) [facility] Tobacco use and exposure 05/14/2021 12:00:00 AM EDT Never used co mpleted Never used [facility] Smoking 05/14/2021 12:00:00 AM EDT Former smoker completed Former smoker [facility] Smoking 04/17/2021 12:00:00 AM EDT Former Smoker completed Former Smoker eCW1 ([facility]) Smoking 11/19/2020 12:00:00 AM EST Former Smoker completed Former Smoker eCW1 ([facility]) Smoking 11/19/2020 12:00:00 AM EST Former Smoker completed Former Smoker eCW1 ([facility]) Smoking 11/19/2020 12:00:00 AM EST Former Smoker completed Former Smoker eCW1 ([facility]) Smoking 11/19/2020 12:00:00 AM EST Former Smoker completed Former Smoker eCW1 ([facility]) Smoking 11/19/2020 12:00:00 AM EST Former Smoker completed Former Smoker eCW1 ([facility]) Smoking 11/19/2020 12:00:00 AM EST Former Smoker completed Former Smoker eCW1 ([facility]) Smoking 11/19/2020 12:00:00 AM EST Former Smoker completed Former Smoker eCW1 ([facility]) Smoking 11/19/2020 12:00:00 AM EST Former Smoker completed Former Smoker eCW1 ([facility]) Vital Signs ID Date Data Source UNK Name Value Range Interpretation Code Description Data Source(s) Body weight 119.353 kg 119.353 kg BOONE ([facility], ) Systolic blood pressure 135 mm[Hg] 135 mm[Hg] M SOSA ([facility], ) rt 140/76 Diastolic blood pressure 79 mm[Hg] 79 mm[Hg] BOONE ([facility]) rt 140/76 Heart rate 80 /min 80 /min [facility] ([facility]) Body temperature 98.9 [degF] 98.9 [degF] [facility] ([facility]) Body height 71 [in_i] 71 [in_i] [facility] ([facility]) 5'11" Body weight 263.12 [lb_av] 263.12 [lb_av] MEDEN T ([facility]) Body mass index (BMI) [Ratio] 36.7 kg/m2 36.7 k g/m2 [facility] ([facility]) [place] body weight 172 [lb_av] 172 [lb_av] [facility] Body surface area Derived from formula 2.37 m2 2.[address] [facility] ([facility]) Body weight 259.4 [lb_av] 259.4 [lb_av] W1 ([facility]) Body height 71 [in_i] 71 [in_i] eCW1 ([facility]) Body mass index (BMI) [Ratio] 36.18 kg/m2 36.18 kg/m2 eCW1 ([facility]) Heart rate 93 /min 93 /min eCW1 ([facility]) Respiratory rate 18 /min 18 /min W1 ([facility]) Body temperature 98.0 [degF] 98.0 [degF] eCW1 ( [facility]) Systolic blood pressure 120 mm[Hg] 120 mm[Hg] e CW1 ([facility]) Diastolic blood pressure 74 mm[Hg] 74 mm[Hg] eCW1 ([facility]) Body temperature 36.28 Diane 36.28 [facility] Body weight 117.028 kg 117.028 kg [facility] Body height 180.3 cm 180.3 cm [facility] Body mass index (BMI) [Ratio] 35.98 kg/m2 35.98 kg/m2 [facility] Oxygen saturation in Arterial blood by Pulse oximetry 97 % 97 % [facility] Heart rate 76 /min 76 /min [facility] Body weight 262 [lb_av] 262 [lb_av] eCW1 ([facility]) Body height 71 [in_i] 71 [in_i] eCW1 ([facility]) Body mass index (BMI) [Ratio] 36.54 kg/m2 36.54 kg/m2 eCW1 ([facility]) Body weight 259.8 [lb_av] 259.8 [lb_av] eCW1 ([facility]) Body height 71 [in_i] 71 [in_i] eCW1 ([facility]) Body mass index (BMI) [Ratio] 36.23 kg/m2 36.23 kg/m2 eCW1 ([facility]) Heart rate 84 /min 84 /min eCW1 ([facility]) Respiratory rate 18 /min 18 /min eCW1 ([facility]) Body temperature 97.8 [degF] 97.8 [degF] eCW1 ( [facility]) Systolic blood pressure 113 mm[Hg] 113 mm[Hg] e CW1 ([facility]) Diastolic blood pressure 69 mm[Hg] 69 mm[Hg] eCW1 ([facility]) Patient Treatment Plan of Care Planned Activity Planned Date Details Description Data Source (s) Simvastatin 10 MG Oral Tablet 05/01/2021 12:00:00 AM EDT [facility] Losartan Potassium 25 MG Oral Tablet 04/15/2021 12:00:00 AM EDT [facility] Allopurinol 100 MG Oral Tablet 04/15/2021 12:00:00 AM EDT [facility] Fluticasone Propionate 50 MCG/ACT 11/19/2020 12:00:00 AM EST eCW1 ([facility]) Azelastine HCl 137 MCG/SPRAY 11/19/2020 12:00:00 AM EST eCW1 ([facility]) Fluticasone Propionate 50 MCG/ACT 11/19/2020 12:00:00 AM EST eCW1 ([facility]) Azelastine HCl 137 MCG/SPRAY 11/19/2020 12:00:00 AM EST eCW1 ([facility]) Fluticasone Propionate 50 MCG/ACT 11/19/2020 12:00:00 AM EST eCW1 ([facility]) Azelastine HCl 137 MCG/SPRAY 11/19/2020 12:00:00 AM EST eCW1 ([facility]) Fluticasone Propionate 50 MCG/ACT 11/19/2020 12:00:00 AM EST eCW1 ([facility]) Azelastine HCl 137 MCG/SPRAY 11/19/2020 12:00:00 AM EST eCW1 ([facility]) Fluticasone Propionate 50 MCG/ACT 11/19/2020 12:00:00 AM EST eCW1 ([facility]) Azelastine HCl 137 MCG/SPRAY 11/19/2020 12:00:00 AM EST eCW1 ([facility]) Fluticasone Propionate 50 MCG/ACT 11/19/2020 12:00:00 AM EST eCW1 ([facility]) Azelastine HCl 137 MCG/SPRAY 11/19/2020 12:00:00 AM EST eCW1 ([facility]) Fluticasone Propionate 50 MCG/ACT 11/19/2020 12:00:00 AM EST eCW1 ([facility]) Azelastine HCl 137 MCG/SPRAY 11/19/2020 12:00:00 AM EST eCW1 ([facility]) Fluticasone Propionate 50 MCG/ACT 11/19/2020 12:00:00 AM EST eCW1 ([facility]) Azelastine HCl 137 MCG/SPRAY 11/19/2020 12:00:00 AM EST eCW1 ([facility])
--- NOTE | 2021-09-06 22:14 | CR.PDOC ---
Plastic Surgery Consultation Date of Consultation 09/06/21 History and Physical CONSULT REPORT FOR: ER REASON FOR CONSULTATION: Lower lip laceration HISTORY OF PRESENT ILLNESS: This is a 75-year-old male who sustained lower lip laceration on the right side status post both accident today. He has vertically oriented laceration about a centimeter away from the corner of the mouth which is passing past the vermilion border. Patient denies loss of consciousness. He is feeling well and good historian. No injury to his teeth. PAST MEDICAL HISTORY: HTN, OA PAST SURGICAL HISTORY: INCLUDES: Multiple lacerations, biceps tear. PREVIOUS ANESTHESIA REACTIONS: denies ALLERGIES: Please see below. FAMILY HISTORY: non contributory HOME MEDICATIONS: Please see below. REVIEW OF SYSTEMS: GENERAL: Denies chills, reports weight gain,. HEENT: Denies blurred vision and double vision. Denies ear symptoms. Denies hoarseness. NECK: Denies any neck pain]. CARDIOVASCULAR: Denies chest pain and palpitations. MUSCULOSKELETAL: Denies arthralgias, back pain and thrombophlebitis. SKIN: Lip laceration NEUROLOGIC: Denies headache, stroke and transient ischemic attack. PSYCHIATRIC: Denies anxiety and depression. ENDOCRINE: Denies thyroid disease. HEMATOLOGY/ONCOLOGY: Denies bleeding or clotting disorder. HEART: Denies any chest pains, palpitations, paroxysmal dyspnea, orthopnea. PULMONARY: Denies chronic cough, dyspnea and wheezing. GASTROINTESTINAL: Denies rectal bleeding, family history of colon cancer, constipation, diarrhea, dysphagia, heartburn and jaundice. GENITOURINARY: Denies dysuria, frequency, hematuria and nocturia. ENDOCRINE: Denies polydipsia, polyphagia, polyuria, heat or cold intolerance. INFECTIOUS: Denies any recent upper respiratory tract infection, UTI, need for use of antibiotics. NUTRITION: Reports good appetite. PHYSICAL EXAMINATION: VITALS SIGNS: Please see below. GENERAL APPEARANCE:Patient seen, laying in bed, awake, alert, and oriented. Comfortable, in no acute distress. SKIN: Warm and moist. Right lower lip laceration 3 cm full thickness to muscle layer. Abrasion lower part of the lip and below vermilion boarder. Small laceration on the gum, 3-4 mm thru mucosal layer inferior to tooth #25 HEENT: Normocephalic, atraumatic. [place] palpebral conjunctiva, anicteric sclerae. Lips and mucosa appear moist. NECK: Supple, no thyromegaly. No obvious jugular venous distention. LUNGS: Clear to auscultation bilaterally. No wheezing appreciated. HEART: No chest wall abnormalities. Regular rate and rhythm with no murmurs appreciated. LABORATORY DATA: Please see below. IMPRESSION: Laceration lower lip full thickness with abrasion. PLANS: Repair of laceration right lower lip in ER. Procedure: Informed consent was obtained from patient. Risk, benefits, and alternatives discussed with the patient. We plan to repair complex laceration of lower lip. 1% lidocaine with epinephrine was used for mental block and field block total 2 cc. The area was irrigated with normal saline. Incision was reapproximated in layers the muscle layer was closed with interrupted 4 Vicryl sutures subcutaneous layer was closed with 5-0 Monocryl. And vermilion border was reapproximated with 5-0 Monocryl as well. Skin closed with interrupted 5-0 plain gut sutures to achieve good skin alignment. There is abrasion on anterior part of the inferior lip below the vermilion border. Bacitracin was applied to the incision into the operation part of the skin. Patient tolerated procedure well. Recommend clindamycin for antibiotics. Follow-up in plastic surgery next week. Instructions given to the patient. Apply bacitracin to the incision daily. No hot liquids. Limit lip motion for the next 2 to 3 days. Do not drink through the straw. Vital Signs Vital Signs Date Time Temp Pulse Resp B/P (MAP) Pulse Ox O2 Delivery O2 Flow Rate FiO2 09/06/21 18:16 98.0 78 18 158/77 (104) 100 Room Air Home Medications Scheduled Allopurinol (Zyloprim) 300 Mg Tablet, 150 MG PO QHS, (Reported) Aspirin (Aspirin EC) 81 Mg Tablet.dr, 81 MG PO QHS, (Reported) Cholestyramine (Cholestyramine Packet) 4 Gm Powd.pack, 4 GM PO BID for chol levels and no gallbladder Famotidine (Famotidine) 10 Mg Tablet, 10 MG PO BID, (Reported) Krill/Om-3/Dha/Epa/Phospho/Ast ([place]-3 Krill Oil Sfgl) 1 Each Capsule, 1 CAP PO DAILY, (Reported) L.acidoph/L.bulg/B.bif/S.therm (Bacid Caplet) 1 Each Tablet, 1 TAB PO DAILY, (Reported) Lactobacillus Acidophilus (Probiotic Acidophilus) 1.5 Mg Capsule, 1 CAP PO DAILY, (Reported) Losartan Potassium (Losartan Potassium) 25 Mg Tablet, 25 MG PO QHS, (Reported) Multivitamins (Thera M Plus Tablet) 1 Each Tablet, 1 TAB PO DAILY, (Reported) Psyllium Husk (Metamucil) 0.52 Gm Capsule, 0.52 GM PO DAILY, (Reported) Simvastatin (Simvastatin) 10 Mg Tablet, 10 MG PO QHS, (Reported) Scheduled PRN Acetaminophen/Diphenhydramine (Acetaminophen Pm Caplet) 1 Each Tablet, 1 TAB PO QHS PRN for SLEEP, (Reported) Loperamide HCl (Imodium A-D) 2 Mg Tablet, 2 MG PO DAILYPRN PRN for DIARRHEA, (Reported) Allergies Coded Allergies: Penicillins (Verified Allergy, Intermediate, rash, 08/15/19) JAYDEN ROSALES DO Sep 06, 2021 22:14
== END 2021-09-06 22:20 | disposition home or self-care (01) ==
LOC: M ED 18:15
DX: S01.511A Laceration without foreign body of lip, initial encounter (principal); W22.8XXA Striking against or struck by other objects, initial encounter; Y92.099 Unspecified place in other non-institutional residence as the place of occurrence of the external cause; Y93.9 Activity, unspecified; Y99.9 Unspecified external cause status; I10 Essential (primary) hypertension; E78.5 Hyperlipidemia, unspecified; K21.9 Gastro-esophageal reflux disease without esophagitis; Z79.82 Long term (current) use of aspirin; Z79.899 Other long term (current) drug therapy; Z88.0 Allergy status to penicillin

== ENCOUNTER → 2021-10-17 | Outpatient (REF) | payer MEDICARE, OTHER ==
[~2021-10-17] MED LIST changes: +CLEO300C2 PO; +FAMO10TA50 PO
[2021-10-17 12:35] LABS: ALBUMIN 3.7 GM/DL (3.2-5.2); BILIRUBIN,TOTAL 0.6 MG/DL (0.2-1.0); CALCIUM LEVEL 9.4 MG/DL (8.8-10.2); CREATININE FOR GFR 1.31 MG/DL (0.70-1.30); GLOMERULAR FILTRATION RATE 56.8 (>42); POTASSIUM SERUM 4.4 MEQ/L (3.5-5.1); TOTAL PROTEIN 7.7 GM/DL (6.4-8.2)
[2021-10-17 12:41] LABS: HEMOGLOBIN A1c 5.8 %
== END ==
LOC: M SFHCCLAY 09:18
PROVIDERS: ATTEND Family Medicine
DX: R73.01 Impaired fasting glucose (principal); I10 Essential (primary) hypertension; Z12.5 Encounter for screening for malignant neoplasm of prostate
CPT/HCPCS: 80053; 83036; G0103; G0463

== ENCOUNTER → 2022-05-04 | Outpatient (CLI) | payer MEDICARE, OTHER ==
[~2022-05-04] MED LIST changes: +LOSA25TA13 PO; -LOSA25TA14 PO; +LOSA50TA28; -LOSA50TA88; -META0.522 PO; +METAMUCIL0.52 G2 PO
== END ==
LOC: M PAIN 13:00
PROVIDERS: ATTEND Nurse Practitioner Family
DX: M51.16 Intervertebral disc disorders with radiculopathy, lumbar region (principal); I10 Essential (primary) hypertension; M10.9 Gout, unspecified; K21.9 Gastro-esophageal reflux disease without esophagitis; L57.0 Actinic keratosis; R73.01 Impaired fasting glucose; Z87.891 Personal history of nicotine dependence; Z79.899 Other long term (current) drug therapy; Z85.828 Personal history of other malignant neoplasm of skin; Z88.0 Allergy status to penicillin

== ENCOUNTER → 2022-06-15 | Outpatient (REF) | payer MEDICARE, OTHER ==
[2022-06-15 17:22] LABS: HEMOGLOBIN A1c 6.1 %
[2022-06-15 17:22] LABS: BASO # 0.1 10^3/uL (0.0-0.2); BASO % 0.7 % (0.0-1.0); EOS # 0.2 10^3/uL (0.0-0.5); EOS % 2.3 % (0.0-3.0); HEMATOCRIT 41.1 % (42.0-52.0); HEMOGLOBIN 13.8 g/dl (13.5-17.5); LYMPH # 2.5 10^3/uL (1.5-5.0); LYMPH % 33.8 % (24.0-44.0); MEAN CORPUSCULAR HEMOGLOBIN 31.1 pg (27.0-33.0); MEAN CORPUSCULAR HGB CONC 33.6 g/dl (32.0-36.5); MEAN CORPUSCULAR VOLUME 92.6 fl (80.0-96.0); MONO # 0.8 10^3/uL (0.0-0.8); MONO % 10.4 % (2.0-8.0); NEUTROPHILS # 3.8 10^3/uL (1.5-8.5); NEUTROPHILS % 52.5 % (36.0-66.0); PLATELET COUNT, AUTOMATED 225 10^3/uL (150-450); RED BLOOD COUNT 4.44 10^6/uL (4.30-6.10); WHITE BLOOD COUNT 7.3 10^3/uL (4.0-10.0)
[2022-06-15 17:49] LABS: ALBUMIN 3.7 GM/DL (3.2-5.2); BILIRUBIN,TOTAL 0.5 MG/DL (0.2-1.0); CALCIUM LEVEL 9.4 MG/DL (8.8-10.2); CHOLESTEROL RISK RATIO 4.552 (<5); CREATININE FOR GFR 1.41 MG/DL (0.70-1.30); GLOMERULAR FILTRATION RATE 52.2 (>42); POTASSIUM SERUM 4.6 MEQ/L (3.5-5.1); TOTAL PROTEIN 7.5 GM/DL (6.4-8.2)
== END ==
LOC: M SFHCCLAY 10:32
PROVIDERS: ATTEND Family Medicine
DX: I10 Essential (primary) hypertension (principal); E78.49 Other hyperlipidemia; R73.01 Impaired fasting glucose

== ENCOUNTER → 2022-10-26 | Outpatient (CLI) | payer MEDICARE, OTHER | LOC: M LABSMTC 10:50 | PROVIDERS: ATTEND Anesthesiology | DX: Z01.812 Encounter for preprocedural laboratory examination (principal); Z11.52 Encounter for screening for COVID-19 ==

== ENCOUNTER → 2022-10-29 | Outpatient (CLI) | payer MEDICARE, OTHER ==
[~2022-10-29] MED LIST changes: +ISOVUE-M 300 61% 15ML VIAL As Ordered ONE; +LIDOCAINE 1% SDV 30ML VIAL As Ordered ONE; +NORCO, ANEXSIA 5/325MG TABLET (HYDROcodone/ACETAMINOPHEN) As Ordered ONE; +diazePAM 5MG TABLET As Ordered ONE; +methylPREDNISolone SUSP 40MG/ML 1ML VIAL (DEPO MEDROL) As Ordered ONE
== END ==
LOC: M PAIN 13:30
PROVIDERS: ATTEND Anesthesiology
DX: M51.16 Intervertebral disc disorders with radiculopathy, lumbar region (principal); I10 Essential (primary) hypertension; M10.9 Gout, unspecified; K21.9 Gastro-esophageal reflux disease without esophagitis; L57.0 Actinic keratosis; R73.01 Impaired fasting glucose; Z85.828 Personal history of other malignant neoplasm of skin; Z87.891 Personal history of nicotine dependence; Z79.899 Other long term (current) drug therapy; Z88.0 Allergy status to penicillin
CPT/HCPCS: 62323; J1030; Q9967

== ENCOUNTER → 2022-11-30 | Outpatient (CLI) | payer MEDICARE, OTHER ==
[~2022-11-30] MED LIST changes: -ISOVUE-M 300 61% 15ML VIAL As Ordered ONE; -LIDOCAINE 1% SDV 30ML VIAL As Ordered ONE; -NORCO, ANEXSIA 5/325MG TABLET (HYDROcodone/ACETAMINOPHEN) As Ordered ONE; -diazePAM 5MG TABLET As Ordered ONE; -methylPREDNISolone SUSP 40MG/ML 1ML VIAL (DEPO MEDROL) As Ordered ONE
== END ==
LOC: M PAIN 11:15
PROVIDERS: ATTEND Nurse Practitioner Family
DX: M51.16 Intervertebral disc disorders with radiculopathy, lumbar region (principal); G89.29 Other chronic pain; G47.30 Sleep apnea, unspecified; I10 Essential (primary) hypertension; Z87.891 Personal history of nicotine dependence; Z88.0 Allergy status to penicillin; Z79.899 Other long term (current) drug therapy

== ENCOUNTER → 2023-01-14 | Outpatient (REF) | payer MEDICARE, OTHER ==
[2023-01-14 12:22] LABS: ALBUMIN 3.9 G/DL (3.2-5.2); BILIRUBIN,TOTAL 0.7 MG/DL (0.3-1.2); CALCIUM LEVEL 9.3 MG/DL (8.3-10.6); CREATININE FOR GFR 1.35 MG/DL (0.70-1.30); GLOMERULAR FILTRATION RATE 54.7 (>42); POTASSIUM SERUM 4.4 MMOL/L (3.5-5.1); TOTAL PROTEIN 7.5 G/DL (5.7-8.2)
== END ==
LOC: M SFHCCLAY 09:11
PROVIDERS: ATTEND Family Medicine
DX: R73.01 Impaired fasting glucose (principal); Z12.5 Encounter for screening for malignant neoplasm of prostate
CPT/HCPCS: 80053; 83036; G0103

== ENCOUNTER → 2023-01-21 | Outpatient (CLI) | payer MEDICARE, OTHER | LOC: M LABSMTC 11:46 | PROVIDERS: ATTEND Anesthesiology | DX: Z01.812 Encounter for preprocedural laboratory examination (principal); Z20.822 Contact with and (suspected) exposure to COVID-19 ==

== ENCOUNTER → 2023-01-22 | Outpatient (CLI) | payer MEDICARE, OTHER ==
[~2023-01-22] MED LIST changes: +ISOVUE-M 300 61% 15ML VIAL As Ordered ONE; +LIDOCAINE 1% SDV 30ML VIAL As Ordered ONE; +NORCO, ANEXSIA 5/325MG TABLET (HYDROcodone/ACETAMINOPHEN) As Ordered ONE; +diazePAM 5MG TABLET As Ordered ONE; +methylPREDNISolone SUSP 40MG/ML 1ML VIAL (DEPO MEDROL) As Ordered ONE
== END ==
LOC: M PAIN 08:15
PROVIDERS: ATTEND Anesthesiology
DX: M51.16 Intervertebral disc disorders with radiculopathy, lumbar region (principal); I10 Essential (primary) hypertension; M10.9 Gout, unspecified; K21.9 Gastro-esophageal reflux disease without esophagitis; L57.0 Actinic keratosis; R73.01 Impaired fasting glucose; Z85.828 Personal history of other malignant neoplasm of skin; Z79.899 Other long term (current) drug therapy; Z87.891 Personal history of nicotine dependence; Z88.0 Allergy status to penicillin
CPT/HCPCS: 62323; J1030; Q9967

== ENCOUNTER → 2023-08-20 | Outpatient (REF) | payer MEDICARE, BC, OTHER ==
[~2023-08-20] MED LIST changes: -ISOVUE-M 300 61% 15ML VIAL As Ordered ONE; -LIDOCAINE 1% SDV 30ML VIAL As Ordered ONE; -NORCO, ANEXSIA 5/325MG TABLET (HYDROcodone/ACETAMINOPHEN) As Ordered ONE; -diazePAM 5MG TABLET As Ordered ONE; -methylPREDNISolone SUSP 40MG/ML 1ML VIAL (DEPO MEDROL) As Ordered ONE
[2023-08-20 12:05] LABS: HEMATOCRIT 41.7 % (42.0-52.0); HEMOGLOBIN 13.7 g/dl (13.5-17.5); MEAN CORPUSCULAR HEMOGLOBIN 30.2 pg (27.0-33.0); MEAN CORPUSCULAR HGB CONC 32.9 g/dl (32.0-36.5); MEAN CORPUSCULAR VOLUME 91.9 fl (80.0-96.0); PLATELET COUNT, AUTOMATED 238 10^3/uL (150-450); RED BLOOD COUNT 4.54 10^6/uL (4.30-6.10); WHITE BLOOD COUNT 7.3 10^3/uL (4.0-10.0)
[2023-08-20 12:15] LABS: ALBUMIN 3.9 G/DL (3.2-5.2); BILIRUBIN,TOTAL 0.6 MG/DL (0.3-1.2); CALCIUM LEVEL 9.4 MG/DL (8.3-10.6); CHOLESTEROL RISK RATIO 4.73 (<5); CREATININE FOR GFR 1.42 MG/DL (0.70-1.30); GLOMERULAR FILTRATION RATE 51.6 (>42); HDL CHOLESTEROL 35.5 MG/DL (>40); LDL CHOLESTEROL 80.9 MG/DL (<100); NON-HDL-C 132.5 MG/DL; POTASSIUM SERUM 4.1 MMOL/L (3.5-5.1); TOTAL PROTEIN 7.3 G/DL (5.7-8.2)
[2023-08-20 12:18] LABS: HEMOGLOBIN A1c 5.6 % (4.0-6.0); URIC ACID 9.8 MG/DL (3.7-9.2)
== END ==
LOC: M SFHCCLAY 07:44
PROVIDERS: ATTEND Family Medicine
DX: I10 Essential (primary) hypertension (principal); E78.49 Other hyperlipidemia; R73.01 Impaired fasting glucose; M1A.9XX0 Chronic gout, unspecified, without tophus (tophi)

== ENCOUNTER → 2023-09-07 | Outpatient (CLI) | payer MEDICARE, BC, OTHER | LOC: M CLY 11:32 | PROVIDERS: ATTEND Physician Assistant | DX: R05.1 Acute cough (principal) ==

== ENCOUNTER → 2023-09-07 | Outpatient (REF) | payer MEDICARE, BC, OTHER | LOC: M SFHCCLAY 11:31 | PROVIDERS: ATTEND Physician Assistant | DX: R50.9 Fever, unspecified (principal) ==

== ENCOUNTER → 2023-10-04 | Outpatient (REF) | payer MEDICARE, OTHER | LOC: M LAB REF 09:15 | PROVIDERS: ATTEND Ophthalmology | DX: D23.10 Other benign neoplasm of skin of unspecified eyelid, including canthus (principal) ==

== ENCOUNTER → 2024-02-18 | Outpatient (REF) | payer MEDICARE, BC ==
[~2024-02-18] MED LIST changes: -ASPI-161 PO; +ASPI-615 PO
[2024-02-18 18:25] LABS: ALBUMIN 3.8 G/DL (3.2-5.2); ALKALINE PHOSPHATASE 64 U/L (46-116); ALT/SGPT 46 U/L (7.0-40); AST/SGOT 38 U/L (<34); BILIRUBIN,TOTAL 0.7 MG/DL (0.3-1.2); BLOOD UREA NITROGEN 15 MG/DL (9-23); CALCIUM LEVEL 9.9 MG/DL (8.3-10.6); CARBON DIOXIDE LEVEL 30 MMOL/L (20-31); CHLORIDE LEVEL 104 MMOL/L (98-107); CHOLESTEROL LEVEL 194 MG/DL (<200); CHOLESTEROL RISK RATIO 5.25 (<5); GLOMERULAR FILTRATION RATE 52.3 (>42); GLUCOSE, FASTING 111 MG/DL (74-106); HDL CHOLESTEROL 36.9 MG/DL (>40); NON-HDL-C 157.1 MG/DL; POTASSIUM SERUM 4.8 MMOL/L (3.5-5.1); SODIUM LEVEL 137 MMOL/L (136-145); TOTAL PROTEIN 7.3 G/DL (5.7-8.2); TRIGLYCERIDES LEVEL 406 MG/DL (<150)
[2024-02-18 20:19] LABS: HEMOGLOBIN A1c 5.9 % (4.0-6.0)
== END ==
LOC: M SFHCCLAY 10:14
PROVIDERS: ATTEND Family Medicine
DX: E78.49 Other hyperlipidemia (principal); R73.01 Impaired fasting glucose

== ENCOUNTER → 2024-08-18 | Outpatient (REF) | payer MEDICARE, OTHER ==
[2024-08-18 17:36] LABS: ALBUMIN 3.9 G/DL (3.2-5.2); ALKALINE PHOSPHATASE 65 U/L (46-116); ALT/SGPT 43 U/L (7.0-40); AST/SGOT 24 U/L (<34); BILIRUBIN,TOTAL 0.6 MG/DL (0.3-1.2); BLOOD UREA NITROGEN 19 MG/DL (9-23); CARBON DIOXIDE LEVEL 30 MMOL/L (20-31); CHLORIDE LEVEL 106 MMOL/L (98-107); CHOLESTEROL LEVEL 188 MG/DL (<200); CHOLESTEROL RISK RATIO 5.57 (<5); CREATININE FOR GFR 1.35 MG/DL (0.70-1.30); GLOMERULAR FILTRATION RATE 54.6 (>42); GLUCOSE, FASTING 107 MG/DL (74-106); HDL CHOLESTEROL 33.7 MG/DL (>40); MAGNESIUM LEVEL 2.1 MG/DL (1.8-2.4); NON-HDL-C 154.3 MG/DL; POTASSIUM SERUM 4.3 MMOL/L (3.5-5.1); SODIUM LEVEL 139 MMOL/L (136-145); TOTAL PROTEIN 7.5 G/DL (5.7-8.2); TRIGLYCERIDES LEVEL 435 MG/DL (<150)
[2024-08-20 04:44] LABS: LDL DIRECT 102 mg/dL (<100)
== END ==
LOC: M LABDRAWC 16:21
PROVIDERS: ATTEND Internal Medicine Cardiovascular Disease
DX: Z13.220 Encounter for screening for lipoid disorders (principal); Z13.1 Encounter for screening for diabetes mellitus; R07.9 Chest pain, unspecified

== ENCOUNTER → 2024-09-06 | Outpatient (REF) | payer MEDICARE, BC ==
[2024-09-06 18:22] LABS: HEMATOCRIT 41.2 % (42.0-52.0); HEMOGLOBIN 13.9 g/dl (13.5-17.5); MEAN CORPUSCULAR HGB CONC 33.7 g/dl (32.0-36.5); MEAN CORPUSCULAR VOLUME 91.8 fl (80.0-96.0); PLATELET COUNT, AUTOMATED 215 10^3/uL (150-450); RED BLOOD COUNT 4.49 10^6/uL (4.30-6.10); WHITE BLOOD COUNT 7.7 10^3/uL (4.0-10.0)
[2024-09-06 18:55] LABS: ALBUMIN 3.9 G/DL (3.2-5.2); ALKALINE PHOSPHATASE 67 U/L (46-116); ALT/SGPT 42 U/L (7.0-40); AST/SGOT 29 U/L (<34); BILIRUBIN,TOTAL 0.6 MG/DL (0.3-1.2); BLOOD UREA NITROGEN 18 MG/DL (9-23); CALCIUM LEVEL 9.9 MG/DL (8.3-10.6); CARBON DIOXIDE LEVEL 26 MMOL/L (20-31); CHLORIDE LEVEL 109 MMOL/L (98-107); CHOLESTEROL LEVEL 166 MG/DL (<200); CHOLESTEROL RISK RATIO 4.67 (<5); GLUCOSE, FASTING 98 MG/DL (74-106); HDL CHOLESTEROL 35.5 MG/DL (>40); NON-HDL-C 130.5 MG/DL; POTASSIUM SERUM 4.5 MMOL/L (3.5-5.1); SODIUM LEVEL 140 MMOL/L (136-145); TOTAL PROTEIN 7.3 G/DL (5.7-8.2); TRIGLYCERIDES LEVEL 478 MG/DL (<150)
[2024-09-06 18:56] LABS: URIC ACID 7.1 MG/DL (3.7-9.2)
[2024-09-06 19:25] LABS: HEMOGLOBIN A1c 5.9 % (4.0-6.0)
== END ==
LOC: M SFHCCLAY 13:52
PROVIDERS: ATTEND Family Medicine
DX: I10 Essential (primary) hypertension (principal); E78.49 Other hyperlipidemia; R73.01 Impaired fasting glucose; M1A.9XX0 Chronic gout, unspecified, without tophus (tophi)

== ENCOUNTER → 2024-09-27 | Outpatient (REF) | payer MEDICARE, OTHER ==
[2024-09-27 18:29] LABS: CREATININE FOR GFR 1.34 MG/DL (0.70-1.30)
== END ==
LOC: M LABDRAWC 11:04
PROVIDERS: ATTEND Internal Medicine Cardiovascular Disease
DX: R94.39 Abnormal result of other cardiovascular function study (principal)

== ENCOUNTER → 2024-10-04 | Outpatient (REF) | payer MEDICARE, OTHER ==
[2024-10-04 18:24] LABS: ALBUMIN 3.9 G/DL (3.2-5.2); BILIRUBIN,TOTAL 0.7 MG/DL (0.3-1.2); CHOLESTEROL RISK RATIO 3.89 (<5); CREATININE FOR GFR 1.44 MG/DL (0.70-1.30); GLOMERULAR FILTRATION RATE 50.6 (>42); HDL CHOLESTEROL 33.9 MG/DL (>40); LDL CHOLESTEROL 52.3 MG/DL (<100); MAGNESIUM LEVEL 2.1 MG/DL (1.8-2.4); NON-HDL-C 98.1 MG/DL; POTASSIUM SERUM 4.5 MMOL/L (3.5-5.1); TOTAL PROTEIN 7.4 G/DL (5.7-8.2)
[2024-10-07 07:07] LABS: LDL DIRECT 64 mg/dL (<100)
== END ==
LOC: M LABDRAWC 16:36
PROVIDERS: ATTEND Internal Medicine Cardiovascular Disease
DX: E66.812 Obesity, class 2 (principal); I11.9 Hypertensive heart disease without heart failure; E78.2 Mixed hyperlipidemia

== ENCOUNTER → 2024-11-16 | Outpatient (REF) | payer MEDICARE, BC ==
[2024-11-16 18:48] LABS: ALBUMIN 3.4 G/DL (3.2-5.2); BILIRUBIN,TOTAL 0.5 MG/DL (0.3-1.2); CALCIUM LEVEL 9.8 MG/DL (8.3-10.6); CREATININE FOR GFR 1.32 MG/DL (0.70-1.30); GLOMERULAR FILTRATION RATE 55.8 (>42); POTASSIUM SERUM 4.8 MMOL/L (3.5-5.1); TOTAL PROTEIN 7.5 G/DL (5.7-8.2)
== END ==
LOC: M SFHCCLAY 14:15
PROVIDERS: ATTEND Family Medicine
DX: I10 Essential (primary) hypertension (principal)

== ENCOUNTER → 2024-12-04 | Outpatient (REF) | payer MEDICARE, OTHER ==
[2024-12-04 14:17] LABS: CALCIUM LEVEL 10.1 MG/DL (8.3-10.6); CREATININE FOR GFR 1.45 MG/DL (0.70-1.30); GLOMERULAR FILTRATION RATE 50.1 (>42); MAGNESIUM LEVEL 2.2 MG/DL (1.8-2.4); POTASSIUM SERUM 4.2 MMOL/L (3.5-5.1)
== END ==
LOC: M LABDRAWC 13:15
PROVIDERS: ATTEND Internal Medicine Cardiovascular Disease
DX: I50.32 Chronic diastolic (congestive) heart failure (principal)

== ENCOUNTER → 2024-12-19 | Outpatient (REF) | payer MEDICARE, OTHER, BC ==
[2024-12-19 18:00] LABS: APPEARANCE, URINE CLEAR (CLEAR); BACTERIA, URINE AUTO NEGATIVE (NEGATIVE); BILIRUBIN, URINE AUTO NEGATIVE (NEGATIVE); BLOOD, URINE BLOOD NEGATIVE (NEGATIVE); COLOR, URINE YELLOW (YELLOW); GLUCOSE, URINE (UA) AUTO 3+ mg/dL (NEGATIVE); KETONE, URINE AUTO NEGATIVE (NEGATIVE); LEUKOCYTE ESTERASE, URINE AUTO NEGATIVE (NEGATIVE); MUCUS, URINE SMALL (NEGATIVE); NITRITE, URINE AUTO NEGATIVE (NEGATIVE); PROTEIN, URINE AUTO 1+ mg/dL (NEGATIVE); RBC, URINE AUTO 0 /HPF (0-3); SPECIFIC GRAVITY URINE AUTO 1.006 (1.002-1.035); SQUAMOUS EPITHELIAL CELL UR AU 0 /HPF (0-6); UROBILINOGEN, URINE AUTO 0.2 mg/dL (0.0-2.0); WBC, URINE AUTO 1 /HPF (0-3)
== END ==
LOC: M SMT 17:01
PROVIDERS: ATTEND Physician Assistant
DX: R31.9 Hematuria, unspecified (principal)

== ENCOUNTER → 2024-12-26 | Outpatient (CLI) | payer MEDICARE, BC ==
[~2024-12-26] MED LIST changes: +ISOVUE-370 76% 100ML VIAL ONE
== END ==
LOC: M PLAIMG 13:03
PROVIDERS: ATTEND Internal Medicine Cardiovascular Disease
DX: I71.40 Abdominal aortic aneurysm, without rupture, unspecified (principal)
CPT/HCPCS: 71275; 74174; Q9967

== ENCOUNTER → 2025-01-09 | Outpatient (REF) | payer MEDICARE, OTHER ==
[~2025-01-09] MED LIST changes: -ISOVUE-370 76% 100ML VIAL ONE
[2025-01-09 18:04] LABS: APPEARANCE, URINE CLEAR (CLEAR); BACTERIA, URINE AUTO NEGATIVE (NEGATIVE); BILIRUBIN, URINE AUTO NEGATIVE (NEGATIVE); BLOOD, URINE BLOOD NEGATIVE (NEGATIVE); COLOR, URINE YELLOW (YELLOW); GLUCOSE, URINE (UA) AUTO 3+ mg/dL (NEGATIVE); KETONE, URINE AUTO NEGATIVE (NEGATIVE); LEUKOCYTE ESTERASE, URINE AUTO NEGATIVE (NEGATIVE); NITRITE, URINE AUTO NEGATIVE (NEGATIVE); PROTEIN, URINE AUTO 1+ mg/dL (NEGATIVE); RBC, URINE AUTO 0 /HPF (0-3); SPECIFIC GRAVITY URINE AUTO 1.009 (1.002-1.035); SQUAMOUS EPITHELIAL CELL UR AU 0 /HPF (0-6); UROBILINOGEN, URINE AUTO 0.2 mg/dL (0.0-2.0); WBC, URINE AUTO 0 /HPF (0-3)
== END ==
LOC: M SMT 17:10
PROVIDERS: ATTEND Urology
DX: N30.90 Cystitis, unspecified without hematuria (principal)

== ENCOUNTER → 2025-02-16 | Outpatient (REF) | payer MEDICARE, OTHER, BC ==
[2025-02-16 17:55] LABS: APPEARANCE, URINE CLOUDY (CLEAR); BACTERIA, URINE AUTO NEGATIVE (NEGATIVE); BILIRUBIN, URINE AUTO NEGATIVE (NEGATIVE); BLOOD, URINE BLOOD 1+ (NEGATIVE); COLOR, URINE YELLOW (YELLOW); GLUCOSE, URINE (UA) AUTO 3+ mg/dL (NEGATIVE); KETONE, URINE AUTO NEGATIVE (NEGATIVE); LEUKOCYTE ESTERASE, URINE AUTO 3+ (NEGATIVE); MUCUS, URINE SMALL (NEGATIVE); NITRITE, URINE AUTO NEGATIVE (NEGATIVE); PROTEIN, URINE AUTO 1+ mg/dL (NEGATIVE); RBC, URINE AUTO 2 /HPF (0-3); SPECIFIC GRAVITY URINE AUTO 1.008 (1.002-1.035); SQUAMOUS EPITHELIAL CELL UR AU 0 /HPF (0-6); UROBILINOGEN, URINE AUTO 0.2 mg/dL (0.0-2.0); WBC, URINE AUTO TNTC /HPF (0-3)
== END ==
LOC: M SMT 16:50
PROVIDERS: ATTEND Urology
DX: Z87.440 Personal history of urinary (tract) infections (principal)

== ENCOUNTER → 2025-02-19 | Outpatient (REF) | payer MEDICARE, BC ==
[2025-02-19 18:29] LABS: BILIRUBIN,TOTAL 0.5 MG/DL (0.3-1.2); CHOLESTEROL RISK RATIO 3.07 (<5); CREATININE FOR GFR 1.36 MG/DL (0.70-1.30); GLOMERULAR FILTRATION RATE 53.3 (>42); HDL CHOLESTEROL 38.4 MG/DL (>40); LDL CHOLESTEROL 45.8 MG/DL (<100); NON-HDL-C 79.6 MG/DL; POTASSIUM SERUM 4.1 MMOL/L (3.5-5.1); TOTAL PROTEIN 7.6 G/DL (5.7-8.2)
[2025-02-19 18:58] LABS: HEMOGLOBIN A1c 5.5 % (4.0-6.0)
== END ==
LOC: M SFHCCLAY 10:34
PROVIDERS: ATTEND Urology
DX: I10 Essential (primary) hypertension (principal); Z12.5 Encounter for screening for malignant neoplasm of prostate; R73.01 Impaired fasting glucose; E78.49 Other hyperlipidemia
CPT/HCPCS: 80053; 80061; 83036; G0103

== ENCOUNTER → 2025-02-26 | Outpatient (CLI) | payer MEDICARE, BC | LOC: M CLY 08:58 | PROVIDERS: ATTEND Family Medicine | DX: M54.6 Pain in thoracic spine (principal); Z53.9 Procedure and treatment not carried out, unspecified reason ==

== ENCOUNTER → 2025-02-28 | Outpatient (CLI) | payer MEDICARE, BC | LOC: M CLY 14:55 | PROVIDERS: ATTEND Family Medicine | DX: M54.14 Radiculopathy, thoracic region (principal) ==

== ENCOUNTER → 2025-03-23 | Outpatient (REF) | payer MEDICARE, BC ==
[2025-03-23 17:47] LABS: APPEARANCE, URINE CLEAR (CLEAR); BACTERIA, URINE AUTO NEGATIVE (NEGATIVE); BILIRUBIN, URINE AUTO NEGATIVE (NEGATIVE); BLOOD, URINE BLOOD NEGATIVE (NEGATIVE); COLOR, URINE YELLOW (YELLOW); GLUCOSE, URINE (UA) AUTO 3+ mg/dL (NEGATIVE); KETONE, URINE AUTO NEGATIVE (NEGATIVE); LEUKOCYTE ESTERASE, URINE AUTO NEGATIVE (NEGATIVE); NITRITE, URINE AUTO NEGATIVE (NEGATIVE); PROTEIN, URINE AUTO NEGATIVE (NEGATIVE); RBC, URINE AUTO 1 /HPF (0-3); SPECIFIC GRAVITY URINE AUTO 1.007 (1.002-1.035); SQUAMOUS EPITHELIAL CELL UR AU 0 /HPF (0-6); UROBILINOGEN, URINE AUTO 0.2 mg/dL (0.0-2.0); WBC, URINE AUTO 1 /HPF (0-3)
== END ==
LOC: M SFHCCLAY 11:35
PROVIDERS: ATTEND Physician Assistant
DX: Z87.440 Personal history of urinary (tract) infections (principal); Z79.899 Other long term (current) drug therapy

== ENCOUNTER → 2025-06-07 | Outpatient (REF) | payer MEDICARE, BC | LOC: M LABDRWAD 12:51 | PROVIDERS: ATTEND Internal Medicine Cardiovascular Disease | DX: I50.32 Chronic diastolic (congestive) heart failure (principal) ==

== ENCOUNTER → 2025-06-11 | Outpatient (CLI) | payer MEDICARE, BC | LOC: M RAD 07:57 | PROVIDERS: ATTEND Family Medicine | DX: R13.14 Dysphagia, pharyngoesophageal phase (principal) ==

== ENCOUNTER → 2025-08-27 | Outpatient (REF) | payer MEDICARE, BC | LOC: M LABDRAWC 17:09 | PROVIDERS: ATTEND Internal Medicine Cardiovascular Disease | DX: I50.32 Chronic diastolic (congestive) heart failure (principal) ==

== ENCOUNTER → 2025-09-24 | Outpatient (REF) | payer MEDICARE, BC ==
[2025-09-24 19:30] LABS: ESTIMATED AVERAGE GLUCOSE 111.0 MG/DL (60-110)
[2025-09-24 19:31] LABS: ALT/SGPT 18.0 U/L (7.0-40); AST/SGOT 20.0 U/L (<34); CALCIUM LEVEL 9.3 MG/DL (8.3-10.6); CARBON DIOXIDE LEVEL 31.0 MMOL/L (20-31); CHLORIDE LEVEL 104.0 MMOL/L (98-107); CREATININE FOR GFR 1.34 MG/DL (0.70-1.30); GLOMERULAR FILTRATION RATE 54.2 (>42); POTASSIUM SERUM 5.0 MMOL/L (3.5-5.1); SODIUM LEVEL 142.0 MMOL/L (136-145)
== END ==
LOC: M SFHCCLAY 10:28
PROVIDERS: ATTEND Family Medicine
DX: I10 Essential (primary) hypertension (principal); R73.01 Impaired fasting glucose